=== PATIENT | female | born 1980 | race Caucasian/White ===

== ENCOUNTER 2024-05-05 13:11 | Outpatient (RCR) | payer OTHER, SELFPAY | END 2024-05-06 08:28 | disposition home or self-care (01) | LOC: HEMC 13:11 | PROVIDERS: PCP Family Medicine; Visit Provider Internal Medicine Hematology & Oncology | DX: D68.59 Other primary thrombophilia (principal); Z86.718 Personal history of other venous thrombosis and embolism; Z86.711 Personal history of pulmonary embolism; Z90.81 Acquired absence of spleen | CPT/HCPCS: G0463 ==

== ENCOUNTER 2024-09-17 12:53 | Outpatient (OUT) | payer OTHER, SELFPAY ==
[2024-09-17 13:25] LABS: Basophils Absolute Auto 0.1 10^3/uL (0.0-0.1); Basophils Percent Auto 0.8 % (0.2-2.0); Eosinophils Absolute Auto 0.6 10^3/uL (0.0-0.7); Eosinophils Percent Auto 5.8 % (0.9-7.0); Hematocrit 40.5 % (36.0-48.0); Hemoglobin 13.4 g/dL (12.0-16.0); Immature Granulocytes Abs Auto 0.03 10^3/uL (0.00-0.03); Immature Granulocytes Pct Auto 0.3 % (0.0-0.5); Lymphocytes Percent Auto 47.5 % (20.5-60.0); Mean Corpuscular HGB Conc 33.1 g/dL (29.9-35.2); Mean Corpuscular Hemoglobin 30.9 pg (26.7-34.0); Mean Corpuscular Volume 93.3 fL (81.0-99.0); Mean Platelet Volume 9.8 fL (9.5-13.5); Neutrophils Absolute Auto 3.9 10^3/uL (1.4-6.5); Neutrophils Percent Auto 36.6 % (43.0-75.0); Platelet Count 436 10^3/uL (150-450); Red Blood Count 4.34 10^6/uL (4.20-5.40); Red Cell Distribution Width 13.7 % (11.0-15.0); White Blood Count 10.6 10^3/uL (4.0-11.0)
[2024-09-17 14:11] LABS: Percent Iron Saturation 31.2 %
[2024-09-17 14:24] LABS: Alanine Aminotransferase 15 U/L (14-59); Albumin Globulin Ratio 1.1; Albumin Level 3.4 g/dL (3.4-5.0); Alkaline Phosphatase 64 U/L (46-116); Aspartate Amino Transferase 15 U/L (15-37); BUN Creatinine Ratio 14.4; Bilirubin Total 0.4 mg/dL (0.2-1.0); Calcium 8.3 mg/dL (8.5-10.1); Carbon Dioxide 28.7 mmol/L (21.0-32.0); Chloride 106 mmol/L (98-107); Estimated GFR (African America >60 (>=60 mL/min/1.73m^2); Estimated GFR (Non-African Ame >60 (>=60 mL/min/1.73m^2); Globulin 3.1 g/dL; Glucose 72 mg/dL (74-106); Potassium 3.7 mmol/L (3.5-5.1); Sodium 141 mmol/L (136-145); Total Protein 6.5 g/dL (6.4-8.2)
== END 2024-09-17 12:54 | disposition home or self-care (01) ==
PROVIDERS: PCP Family Medicine; Visit Provider Internal Medicine Hematology & Oncology
DX: D68.59 Other primary thrombophilia (principal); I82.409 Acute embolism and thrombosis of unspecified deep veins of unspecified lower extremity
CPT/HCPCS: 36415; 80053; 82728; 83540; 83550; 85025

== ENCOUNTER 2024-10-13 07:52 | Outpatient (RCR) | payer OTHER, SELFPAY | END 2024-10-14 08:34 | disposition home or self-care (01) | LOC: HEMC 07:52 | PROVIDERS: PCP Family Medicine; Visit Provider Internal Medicine Hematology & Oncology | DX: I82.409 Acute embolism and thrombosis of unspecified deep veins of unspecified lower extremity (principal); D68.59 Other primary thrombophilia; Z86.718 Personal history of other venous thrombosis and embolism; F17.210 Nicotine dependence, cigarettes, uncomplicated; Z79.01 Long term (current) use of anticoagulants | CPT/HCPCS: G0463 ==

== ENCOUNTER 2025-01-05 07:33 | Outpatient (RCR) | payer OTHER, SELFPAY ==
[2025-01-05 12:38] LABS: Hematocrit 44.5 % (36.0-48.0); Hemoglobin 14.8 g/dL (12.0-16.0); Immature Granulocytes Abs Auto 0.01 10^3/uL (0.00-0.03); Immature Granulocytes Pct Auto 0.1 % (0.0-0.5); Lymphocytes Absolute Auto 4.3 10^3/uL (1.2-3.8); Mean Corpuscular HGB Conc 33.3 g/dL (29.9-35.2); Mean Corpuscular Hemoglobin 31.4 pg (26.7-34.0); Mean Corpuscular Volume 94.5 fL (81.0-99.0); Platelet Count 371 10^3/uL (150-450); Red Blood Count 4.71 10^6/uL (4.20-5.40); White Blood Count 9.5 10^3/uL (4.0-11.0)
[2025-01-06 14:35] LABS: Alanine Aminotransferase 21 U/L (14-59); Albumin Globulin Ratio 1.0; Albumin Level 3.4 g/dL (3.4-5.0); Alkaline Phosphatase 60 U/L (46-116); Anion Gap 9.8; Aspartate Amino Transferase 14 U/L (15-37); Blood Urea Nitrogen 18.0 mg/dL (7.0-18.0); Calcium 8.7 mg/dL (8.5-10.1); Carbon Dioxide 29.3 mmol/L (21.0-32.0); Chloride 104 mmol/L (98-107); Estimated GFR (African America >60 (>=60 mL/min/1.73m^2); Estimated GFR (Non-African Ame >60 (>=60 mL/min/1.73m^2); Globulin 3.3 g/dL; Glucose 99 mg/dL (74-106); Potassium 4.1 mmol/L (3.5-5.1); Sodium 139 mmol/L (136-145); Thyroid Stimulating Hormone 1.217 uIU/mL (0.358-3.740); Total Protein 6.7 g/dL (6.4-8.2)
[2025-01-06 15:14] LABS: Iron 54.0 ug/dL (50.0-170.0); Percent Iron Saturation 21.9 %; Total Iron Binding Capacity 247.0 ug/dL (250.0-450.0)
[2025-01-06 15:29] LABS: Ferritin 53.0 ng/mL (8.0-252.0)
== END 2025-01-07 23:59 | disposition home or self-care (01) ==
LOC: HEMC 07:33
PROVIDERS: PCP Family Medicine; Visit Provider Internal Medicine Hematology & Oncology
DX: I82.409 Acute embolism and thrombosis of unspecified deep veins of unspecified lower extremity (principal); D68.59 Other primary thrombophilia; F17.210 Nicotine dependence, cigarettes, uncomplicated
CPT/HCPCS: 36415; 80053; 82728; 83540; 83550; 83615; 84439; 84443; 85025; G0463

== ENCOUNTER 2025-04-20 14:18 | Outpatient (OUT) | payer OTHER, SELFPAY ==
--- OUTSIDE RECORDS SUMMARY | 2023-11-18 10:30 | XMS_ITS ---
Author Organization The [facility] in [place] Address [address] [place] [address] Care Team Providers Care Emergency Dispatch Operator Name Role Phone None, Unknown or Primary Care Provider Unavailab Ruben Ramsay Unavailable [phone] REASON FOR VISIT MD Encounters Encounter Location Date Provider Diagnosis [address] [place] [address] 11/18/2023 Ruben Michele Plan Of Treatment Next Appt Details Provider Name:Zulema Gilbert , 04/20/2025 03:00:00 PM, [address] [place], [address], Progress Notes * Nelda العراقي EDOB:06/1979 (45 yo F)Acc No.[id number]:11/18/2023 UNLOCKED PROGRESS NOTE Progress Notes Patient: Joanie TORRESAARON Nelda Cortes :?Ruben Michele MDDOB:1980???Age:43 Y ???Sex:FemaleDate:4Phone:[phone]:[address], [id number]:Unknown or None Subjective: * Chief Complaints: * 1 . MD. * Medical History: Objective: * Vitals: Assessment: Plan: * Treatment: * * Electronic signature of Ruben Michele MD, [id number] on 04/20/2025 at 02:24 PM ESTSign off status: PendingVisit Status:?CANC (Cancelled) * Provider: Harjinder Michele MD Date: 0 11/18/2023 Generated for Printing/Faxing/eTransmitting on:?04/20/2025 02:24 PM EST
--- OUTSIDE RECORDS SUMMARY | 2024-01-21 10:00 | XMS_ITS ---
Author Organization The [facility] in [place] Address [address] [place] [address] Care Team Providers Care Service Girl Name Role Phone None, Unknown or Primary Care Provider Unavailab Ruben Ramsay Unavailable [phone] REASON FOR VISIT MD Encounters Encounter Location Date Provider Diagnosis [address] [place] [address] 01/21/2024 Ruben Michele Plan Of Treatment Next Appt Details Provider Name:Zulema Gilbert , 04/20/2025 03:00:00 PM, [address] [place], [address], Progress Notes * Nelda العراقي EDOB:06/1979 (45 yo F)Acc No.[id number]:01/21/2024 UNLOCKED PROGRESS NOTE Progress Notes Patient: Joanie TORRESAARON Nelda Cortes :?Ruben Michele MDDOB:1980???Age:43 Y ???Sex:FemaleDate:4Phone:[phone]:[address], [id number]:Unknown or None Subjective: * Chief Complaints: * 1 . MD. * Medical History: Objective: * Vitals: Assessment: Plan: * Treatment: * * Electronic signature of Ruben Michele MD, [id number] on 04/20/2025 at 02:24 PM ESTSign off status: PendingVisit Status:?CANC (Cancelled) * Provider: Harjinder Michele MD Date: 0 01/21/2024 Generated for Printing/Faxing/eTransmitting on:?04/20/2025 02:24 PM EST
--- OUTSIDE RECORDS SUMMARY | 2024-02-04 04:10 | XMS_ITS ---
Author Organization The [facility] in [place] Address [address] [place] [address] Care Team Providers Care Drop Crew Laborer Name Role Phone None, Unknown or Primary Care Provider Unavailab le Provider, Lab Unavailable [phone] REASON FOR VISIT gf/ct Encounters Encounter Location Date Provider Diagnosis [facility] [place] [address] [address] 02/04/2024 Lab Provider Plan Of Treatment Next Appt Details Provider Name:Zulema Reeveswla , 04/20/2025 03:00:00 PM, [address] [place], [address], Progress Notes * Nelda العراقي EDOB:06/1979 (45 yo F)Acc No.[id number]:02/04/2024 UNLOCKED PROGRESS NOTE Progress Note Patient: Joanie AVALOS Nelda Sebastian :?Lab ProviderDOB:1980???Age:43 Y???Sex: FemaleDate:4Phone:[phone]:[address] [id number]:Unknown or NoneCheck In:09:07 AM ESTCheck Out:09:47 AM EST Subjective: * Chief Complaints: * 1 . Gf/ct. * Medical History: Objective: * Vitals: Assessment: Plan: * Treatment: * * Electronic signature of Lab Provider on 04/20/2025 at 02:24 PM ESTSign off status: PendingVisit Status:?CHK (Check Out) * Provider: Panchito catalan Provider Date: 0 02/04/2024 Generated for Printing/Faxing/eTransmitting on:?04/20/2025 02:24 PM EST
--- OUTSIDE RECORDS SUMMARY | 2024-02-04 08:15 | XMS_ITS ---
Author Organization The [facility] in [place] Address [address] [place] [address] Care Team Providers Care Dial Painter Name Role Phone None, Unknown or Primary Care Provider Unavailab Ruben Ramsay Unavailable [phone] REASON FOR VISIT MD Encounters Encounter Location Date Provider Diagnosis [address] [place] [address] 02/04/2024 Ruben Michele Plan Of Treatment Next Appt Details Provider Name:Zulema Gilbert , 04/20/2025 03:00:00 PM, [address] [place], [address], Progress Notes * Nelda العراقي EDOB:06/1979 (45 yo F)Acc No.[id number]:02/04/2024 UNLOCKED PROGRESS NOTE Progress Notes Patient: Joanie TORRESAARON Nelda Cortes :?Ruben Michele MDDOB:1980???Age:43 Y ???Sex:FemaleDate:4Phone:[phone]:[address], [id number]:Unknown or None Subjective: * Chief Complaints: * 1 . MD. * Medical History: Objective: * Vitals: Assessment: Plan: * Treatment: * * Electronic signature of Ruben Michele MD, [id number] on 04/20/2025 at 02:23 PM ESTSign off status: PendingVisit Status:?CONFPHONE (Voice) * Provider: Harjinder Michele MD Date: 0 02/04/2024 Generated for Printing/Faxing/eTransmitting on:?04/20/2025 02:23 PM EST
--- OUTSIDE RECORDS SUMMARY | 2024-05-05 08:00 | XMS_ITS ---
Author Organization The [facility] in [place] Address [address] [place] [address] Care Team Providers Care Meter Tester Polyphase Name Role Phone None, Unknown or Primary Care Provider Unavailab Zulema Gagnon Unavailable [phone] REASON FOR VISIT MD Encounters Encounter Location Date Provider Diagnosis [facility] Oncology [address] [place] [address] 05/05/2024 Zulema Gilbert Plan Of Treatment Next Appt Details Provider Name:Zulema Gilbert , 04/20/2025 03:00:00 PM, [address] [place] [address], [address], Progress Notes * Nelda العراقي EDOB:06/1979 (45 yo F)Acc No.[id number]:05/05/2024 UNLOCKED PROGRESS NOTE Progress Notes Patient: Joanie Nelda AVALOS :?Zulema Gilbert M.D.:1980???Age:44 Y ???Sex:FemaleDate:4Phone:[phone]:[address] [place] [address] ROU[address] [facility] [id number]:Unknown or None Subjective: * Chief Complaints: * 1 . MD. * Medical History: Objective: * Vitals: Assessment: Plan: * Treatment: * * Electronic signature of Zulema Gilbert MD, [id number] on 04/20/2025 at 02:24 PM ESTSign off status: PendingVisit Status:?CONFPHONE (Voice) * Provider: Kate Gilbert M.D. Date: 07/05/2023 Generated for Printing/Faxing/eTransmitting on:?04/20/2025 02:24 PM EST
--- OUTSIDE RECORDS SUMMARY | 2024-09-17 08:00 | XMS_ITS ---
Author Organization The [facility] in [place] Address [address] [place] [address] Care Team Providers Care Health Promoter Name Role Phone None, Unknown or Primary Care Provider Unavailab Zulema Gagnon Unavailable [phone] REASON FOR VISIT MD Encounters Encounter Location Date Provider Diagnosis [facility] On[facility] [address] [place] [address] 09/17/2024 Zulema Gilbert Plan Of Treatment Next Appt Details Provider Name:Zulema Gilbert , 04/20/2025 03:00:00 PM, [address] [place] [address], [address], Progress Notes * Nelda العراقي EDOB:06/1979 (45 yo F)Acc No.[id number]:09/17/2024 UNLOCKED PROGRESS NOTE Progress Notes Patient: Joanie Nelda AVALOS :?Zulema Gilbert M.D.:1980???Age:44 Y ???Sex:FemaleDate:09/17/2024Phone:[phone]:[address] [facility] [id number]:Unknown or None Subjective: * Chief Complaints: * 1 . MD. * Medical History: Objective: * Vitals: Assessment: Plan: * Treatment: * * Electronic signature of Zulema Gilbert MD, [id number] on 04/20/2025 at 02:23 PM ESTSign off status: PendingVisit Status:?CANC (Cancelled) * Provider: Kate Gilbert M.D. Date: 0 09/17/2024 Generated for Printing/Faxing/eTransmitting on:?04/20/2025 02:23 PM EST
--- OUTSIDE RECORDS SUMMARY | 2024-10-13 10:00 | XMS_ITS ---
Author Organization The [facility] in [place] Address [address] [place] [address] Care Team Providers Care Learning Specialist Name Role Phone None, Unknown or Primary Care Provider Unavailab Zulema Gagnon Unavailable [phone] REASON FOR VISIT MD Encounters Encounter Location Date Provider Diagnosis [facility] Oncology [address] [place] [address] 10/13/2024 Zulema Gilbert Plan Of Treatment Next Appt Details Provider Name:Zulema Gilbert , 04/20/2025 03:00:00 PM, [address] [place] [address], [phone], Progress Notes * Nelda العراقي EDOB:06/1979 (45 yo F)Acc No.[id number]:10/13/2024 UNLOCKED PROGRESS NOTE Progress Notes Patient: Joanie Nelda AVALOS :?Zulema Gilbert M.D.:1980???Age:44 Y ???Sex:FemaleDate:10/13/2024Phone:[phone]:[address] [facility] [id number]:Unknown or None Subjective: * Chief Complaints: * 1 . MD. * Medical History: Objective: * Vitals: Assessment: Plan: * Treatment: * * Electronic signature of Zulema Gilbert MD, [id number] on 04/20/2025 at 02:23 PM ESTSign off status: PendingVisit Status:?CONFPHONE (Voice) * Provider: Kate Gilbert M.D. Date: 0 10/13/2024 Generated for Printing/Faxing/eTransmitting on:?04/20/2025 02:23 PM EST
--- OUTSIDE RECORDS SUMMARY | 2025-01-05 05:45 | XMS_ITS ---
Author Organization The [facility] in [place] Address [address] [place] [address] Care Team Providers Care Bull Chain Operator Name Role Phone None, Unknown or Primary Care Provider Unavailab Zulema Gagnon Unavailable [phone] REASON FOR VISIT MD Encounters Encounter Location Date Provider Diagnosis [facility] [address] [place] [address] 01/05/2025 Zulema Gilbert Plan Of Treatment Next Appt Details Provider Name:Zulema Gilbert , 04/20/2025 03:00:00 PM, [address] [place] [address], [address], Progress Notes * Nelda العراقي EDOB:06/1979 (45 yo F)Acc No.[id number]:01/05/2025 UNLOCKED PROGRESS NOTE Progress Notes Patient: Joanie Nelda AVALOS :?Zulema Gilbert M.D.:1980???Age:44 Y ???Sex:FemaleDate:01/05/2025Phone:[phone]:[address] [facility] [id number]:Unknown or None Subjective: * Chief Complaints: * 1 . MD. * Medical History: Objective: * Vitals: Assessment: Plan: * Treatment: * * Electronic signature of Zulema Gilbert MD, [id number] on 04/20/2025 at 02:24 PM ESTSign off status: PendingVisit Status:?CONFPHONE (Voice) * Provider: Kate Gilbert M.D. Date: 0 01/05/2025 Generated for Printing/Faxing/eTransmitting on:?04/20/2025 02:24 PM EST
--- OUTSIDE RECORDS SUMMARY | 2025-02-02 09:45 | XMS_ITS ---
Author Organization The [facility] in [place] Address [address] [place] [address] Care Team Providers Care Ordnance Truck Installation Mechanic Name Role Phone None, Unknown or Primary Care Provider Unavailab Zulema Gagnon Unavailable [phone] REASON FOR VISIT MD TELEHEALTH Encounters Encounter Location Date Provider Diagnosis The [facility] Oncology [address] [place] [address] 02/02/2025 Zulema Gilbert Plan Of Treatment Next Appt Details Provider Name:Zulema Gilbert , 04/20/2025 03:00:00 PM, [address] [place], [address], Progress Notes * Nelda العراقي EDOB:06/1979 (45 yo F)Acc No.[id number]:02/02/2025 UNLOCKED PROGRESS NOTE Progress Notes Patient: Joanie Nelda AVALOS :?Zulema Gilbert M.D.:1980???Age:44 Y ???Sex:FemaleDate:02/02/2025Phone:[phone]:[address] [facility] [id number]:Unknown or None Subjective: * Chief Complaints: * 1 . TELEHEALTH. * Medical History: Objective: * Vitals: Assessment: Plan: * Treatment: * * Electronic signature of Zulema Gilbert MD, [id number] on 04/20/2025 at 02:23 PM ESTSign off status: PendingVisit Status:?CANC (Cancelled) * Provider: Kate Gilbert M.D. Date: 0 02/02/2025 Generated for Printing/Faxing/eTransmitting on:?04/20/2025 02:23 PM EST
--- OUTSIDE RECORDS SUMMARY | 2025-04-20 14:23 | XMS_ITS | Clinical Summary ---
Author Organization [employer] Address [id number] [address] [place] [address] Care Team Providers Care Food Sampler Name Role Phone Nahomy Faria Panchito RAMOS-FELLMONGERY WORKER Primary Care Provider [phone] Allergies Active AllergyReactionsCriticalityNoted DateCommentsAcetaminophen-CodeineItching ,SwnbTzn4211/09/2013 sob, light headed, Sertraline Hcl11/09/2013 Panic attack Medications MedicationSigDispense QuantityRefillsLast FilledStart DateEnd DateStatus gabapentin (NEURONTIN) 600 mg tablet Take by mouth.04/29/2017Active rivaroxaban (XARELTO) 20 mg tablet tablet Take 20 mg by mouth daily.Active ketorolac (ACULAR) 0.5 % ophthalmic solution Administer 1 drop to both eyes every 6 (six) hours. 5 mL 5Active fluorometholone (FML LIQUIFILM) 0.1 % ophthalmic suspension Indications:Allergic conjunctivitis of both eyes,Superficial punctate keratitis of both eyesAdminister 1 drop to both eyes in the morning and 1 drop at noon and 1 drop in the evening and 1 drop before bedtime. 10 mL 5Active carboxymethylcellulose (REFRESH TEARS) 1 % ophthalmic solution Indications:Keratoconjunctivitis sicca due to decreased tear production, bilateralAdminister 1 drop to both eyes in the morning and 1 drop at noon and 1 drop in the evening and 1 drop before bedtime. 15 mL 5Active olopatadine (PATADAY ONCE DAILY RELIEF) 0.7 % drops Indications:Allergic conjunctivitis of both eyesAdminister 1 drop to both eyes in the morning. 5 mL 5Active cycloSPORINE (RESTASIS) 0.05 % ophthalmic emulsion Indications:Keratoconjunctivitis sicca due to decreased tear production, bilateral,Superficial punctate keratitis of both eyesAdminister 1 drop to both eyes in the morning and 1 drop before bedtime. 180 each 3105Active REFRESH OPTIVE 1-0.9 % drops,gel Indications:Keratoconjunctivitis sicca due to decreased tear production, bilateralAdminister 1 drop to both eyes nightly. 10 mL 1115Active Active Problems ProblemNoted DateDiagnosed DateKeratoconjunctivitis sicca due to decreased tear production, eehvnbtoi26/25/2025llergic conjunctivitis of both eyes03/04/2025 Superficial punctate keratitis of both eyes03/04/2025 Encounters DateTypeDepartmentCare KkwkMsafhotmxvd37/25/2025 3:45 PM EDTOffice Visit [facility] [address] [place] [phone] Jake Jessica, OD Keratoconjunctivitis sicca due to decreased tear production, bilateral (Primary Dx); Superficial punctate keratitis of both eyes; Allergic conjunctivitis of both eyes03/04/20252058Ogedjk10/19/2025Refill [facility] [address] [place] [phone] Betzy Cerda, COA Allergic conjunctivitis of both eyes01/25/2025 2:15 PM EDTOffice Visit [facility] [address] [place] [phone] Jake Jessica, OD Allergic conjunctivitis of both eyes (Primary Dx); Superficial punctate keratitis of both eyes; Keratoconjunctivitis sicca due to decreased tear production, nxnxyckjb21/18/2025 Refill [facility] [address] [place] [phone] Jake Jessica, OD Allergic conjunctivitis of both eyes01/24/2025Travelfrom Last 3 Months Immunizations ImmunizationAdministration DatesNext EbbBpua0701/10/2023 Social History Tobacco UseTypesPacks/DayYears UsedDateSmoking Tobacco: Every PicYttqwsmova451 Smokeless Tobacco: Never Tobacco Cessation:Ready to Q uit: Not Asked; Counseling Given: Not Answered Alcohol UseStandard Drinks/WeekCommentsNo0 (1 standard drink = 0.6 oz pure alcohol)ChildcareAnswerDate BlblsahkJuyfeqghuYuhbpik34/11/2019EmploymentAnswer Date YgaxydulRntunppwrrFsxtbfz60/11/2019Hunger ScreeningAnswerDate Recorded Within the past 12 months we worried whether our food would run out before we got money to buy more.Never True10/31/2024Within the past 12 months the food we bought just didn't last and we didn't have money to get more.Never True 10/31/2024Purpose - LifeAnswerDate RecordedPurpose and direction in lifeUnknown 1CommentsNoSex and Gender InformationValueDate RecordedSex Assigned at BirthNot on fileLegal SgwGtvgvl49/04/2015 7:45 PM EDTGender Identity Not on fileSexual OrientationNot on file Last Filed Vital Signs Vital SignReadingTime TakenCommentsBlood Axzroddk895/40010/31/2024 6:15 PM EDT Ppjdo27437/24/2025 6:15 PM MIPNfmfugtuxzs60.4 ??C (97.6 ??F)10/31/2024 6:15 PM EDTRespiratory Ixtm627310/31/2024 6:15 PM EDTOxygen Hgrlnbmzym099%10/31/2024 6:15 PM EDTInhaled Oxygen Concentration--Zufojw54.6 kg (129 lb 1.6 oz)10/31/2024 6:15 PM ACRRtijum605.9 cm (5' 1 )10/31/2024 6:15 PM EDTBody Mass Index24.39010/31/2024 6:15 PM EDT Plan of Treatment DateTypeDepartmentCare Team (Latest Contact Info)Lxtqwcubmvm11/18/2025 3:15 PM ESTOffice Visit [facility] [address] [place] [phone] Jaskaran Jake W, OD [address] [facility] [address] [place] [address] Health MaintenanceDue DateLast DoneCommentsTobacco Fjboekpraf1982 Depression Zwpctdnaz51/01/1994COVID-19 Vaccine ( - 2024- season)2025 06/26/2021Influenza Qvptesa71/, 06/26/2021, 07/31/2019, Additional history existsPap Smear/, 04/27/2022dult BMI Vozrpzfdt07/24/336129/Tobacco Pfkbcvrgo59/DTaP,Tdap and Td Vaccines (2 - Td or Tdap) Medical Devices Not on file [place] [address] Care Teams Team MemberRelationshipSpecialtyStart DateEnd Nahomy Faria, SVP [employer]-FELLMONGERY WORKER [address] [place] [address] PCP - GeneralNurse Practitioner10/31/24
--- OUTSIDE RECORDS SUMMARY | 2025-04-20 14:23 | XMS_ITS | CCD ---
Author Organization [facility] Care Team Providers Care Derrick Operator Name Role Phone Unavailable Primary Care Provider Unavailabl e RAFA, JUN Admitting Unavailable RAFA, JUN Attending Unavailable RAFA, JUN Consulting Unavailable RAFA, JUN Admitting Unavailable RAFA, JUN Attending Unavailable RAFA, JUN Consulting Unavailable RAFA, JUN S Primary Care Unavailable SZYCH, DAVID Referring Unavailable RAFA, JUN S Primary Care Unavailable SZYCH, DAVID Referring Unavailable SZYCH, DAVID Referring Unavailable RAFA, JUN S Primary Care Unavailable NONE, XXXX Primary Care Physician Unavailab DO Sarah Moon Attending Unavailable JESENIA GARCIA Attending Unavailable QUIQUENAHOMY ZALDIVAR Primary Care Unavailable Quique MATERIAL CONTROL SUPERVISORNahomy RIGGS Primary Care Provider JAKE JESSICA Attending Unavailable NAHOMY LEI Referring Unavailable QUIQUE NAHOMY L Primary Care Unavailable JAKE JESSICA Attending Unavailable QUIQUE NAHOMY L Primary Care Unavailable Allergies Allergy ClassificationReported Allergen(s)Allergy TypeDate of OnsetReaction(s) Facility (7 sources)Acetaminophen / Codeine; Translations: [ACETAMINOPHEN-CODEINE]Drug [place]wwzg[place] (7 sources)Sertraline; Translations: [SERTRALINE HCL]Drug Pfigfum97-89-0083[facility] [place], [place] (1 source)CodeineDrug Uozerqv69-58-7273[facility]Ohio[facility] (2 sources)Acetaminophen / Codeine; Translations: [acetaminophen-codeine]Drug AllergyHiWestern [facility] Medications Current Medications MedicationDrug Class(es)DatesSig (Normalized)Sig (Original) carboxymethylcellulose 0.01 mg/mg ophthalmic gel (4 sources)Start: 44-12-8362szxfeddynxftwxmvkbuwrj (REFRESH TEARS) 1 % ophthalmic solution Indications: Keratoconjunctivitis sicca due to decreased tear production, bilateral Administer 1 drop to both eyes in the morning and 1 d rop at noon and 1 drop in the evening and 1 drop before bedtime. 15 mL 3 01/25/2025 Activecarboxymethylcellulose sodium 0.01 mg/mg / glycerin 0.009 mg/mg ophthalmic gel (1 source)Non-Standardized Chemical AllergenStart: 11-63-4199SLPGQLJ OPTIVE 1- 0.9 % drops,gel Indications: Keratoconjunctivitis sicca due to decreased tear production, bilateral Administer 1 drop to both eyes nightly. 10 mL 11 03/10/2025 ActivecycloSPORINE 0.5 mg/ml ophthalmic suspension (1 source)Calcineurin Inhibitor ImmunosuppressantStart: 25-50-0626yfbh 1 drop(s) into the eye(s) in the morningcycloSPORINE (RESTASIS) 0.05 % ophthalmic emulsion Indications: Keratoconjunctivitis sicca due to decreased tear production, bilateral , Superficial punctate keratitis of both eyes Administer 1 drop to both eyes in the morning and 1 drop before bedtime. 180 each 3 03/10/2025 Activeerythromycin 0.005 mg/mg ophthalmic ointment (1 source)Macrolide, Macrolide AntimicrobialStart: 02-27-2024 End: 84-75-0088tramnduyllzf Opth 0.5% Oint 0.5 in, OPTH, QID for 7 day(s), 3.5 gm, Refill(s) 0 Start Date: 02/27/24Stop Date: 03/05/24 Status: Ordered fluorometholone 1 mg/ml ophthalmic suspension (4 sources)CorticosteroidStart: 34-88-2543wkgayqadhbruucc (FML LIQUIFILM) 0.1 % ophthalmic suspension Indications: Allergic conjunctivitis ofboth eyes , Superficial punctate keratitis of both eyes Administer 1 drop to both eyes in the morning and 1 drop at noon and 1 drop in the evening and 1 drop before bedtime. 10 mL 01/25/2025 Activegabapentin 600 mg oral tablet (5 sources)Anti-epileptic AgentStart: 20-71-3002jndpdoiodc (NEURONTIN) 600 mg tablet Take by mouth. 04/29/2017 Activeketorolac tromethamine 5 mg/ml ophthalmic solution (4 sources)Nonsteroidal Anti-inflammatory Drug, Cyclooxygenase InhibitorStart: 65-78-4567whjb 1 drop(s) into the eye(s) every six hoursketorolac (ACULAR) 0.5 % ophthalmic solution Administer 1 drop to both eyes every 6 (six) hours. 5 mL 10/31/2024 Active1 ml medroxyPROGESTERone acetate 150 mg/ml injection (1 source)ProgestinStart: 47-55-3848vmyqofsJJYTLWBGYafl (DEPO-PROVERA) 150 MG/ML injection Inject 1 mL into the muscle every 3 months 1mL 3 10/07/2018 Active olopatadine (PATADAY ONCE DAILY RELIEF) 0.7 % drops (4 sources)Start: 36-70-2170yaejwnqzfbt (PATADAY ONCE DAILY RELIEF) 0.7 % drops Indications: Allergic conjunctivitis of both eyes Administer 1 drop to both eyes in the morning. 5 mL 4 01/26/2025 ActiveStart: 01-25-2025 End: 27-57-2828dexbxxbyank (PATADAY ONCE DAILY RELIEF) 0.7 % drops Indications: Allergic conjunctivitis of both eyes Instill 1 drop to eye in the morning. 5 mL 4 01/25/2025 01/26/2025 DiscontinuedStart: 05-30-8566khngvctlyqx (PATADAY ONCE DAILY RELIEF) 0.7 % drops Indications: Allergic conjunctivitis of both eyes Instill 1 drop to eye in the morning. 5 mL 4 01/25/2025 Activerivaroxaban 20 mg oral tablet (5 sources)Factor Xa InhibitorStart: 66-13-1335bthh 1 tablet by mouth once daily rivaroxaban (XARELTO) 20 MG TABS tablet Indications: Acute deep vein thrombosis (DVT) of lower extremity, unspecified laterality, unspecified vein (HCC) Take 1 tablet by mouth daily 30 tablet 11 01/08/2019 Active Completed/Discontinued Medications MedicationDrug Class(es)DatesSig (Normalized)Sig (Original)PATADAY ONCE DAILY RELIEF 0.7 % drops (2 sources)Start: 01-26-2025 End: 32-25-7572MDKZOPX ONCE DAILY RELIEF 0.7 % drops Indications: Allergic conjunctivitis of both eyes ADMINISTER 1 DROP INTO EYE IN THE MORNING 5 mL 4 01/26/2025 01/26/2025 Discontinued (Reorder) Problems Active Problems Problem ClassificationProblemDateDocumented DateEpisodic/ChronicInflammation; infection of eye (except that caused by tuberculosis or sexually transmitteddisease) (9 sources)Bilateral punctate keratitis of eyes; Translations: [Punctate keratitis, bilateral]Onset: 781627-85-0720VstmiazSjmltrtbqrsg; infection of eye (except that caused by tuberculosis or sexually transmitteddisease) (8 sources)Conjunctivitis; Translations: [Unspecified conjunctivitis]Onset: 25-84-2520IvtpvyhwAglnqbkpy disorders (3 sources)Menorrhagia; Translations: [Irregular periods]Onset: 10-29-2013 41-19-4205TjlrbusLmyii eye disorders (1 source)Dry eyeOnset: 30-91-5494PbskdhcuIdbgoppa codes; unclassified (1 source)Tobacco user; Translations: [Tobacco abuse]Onset: ChronicSubstance-related disorders (1 source)Tuuscv84-12-0705IvbvhvvNmmyqcm on above:Added secondary to documentation in Social History.Superficial injury; contusion (1 source)Injury of conjunctiva and corneal abrasion without foreign body, right eye, initial encounter; Translations: [Injury of conjunctiva and corneal abrasion without foreign body, right eye, initial encounter]Onset: 10-31-2024 EpisodicSystemic lupus erythematosus and connective tissue disorders (1 source)Keratoconjunctivitis oxhtn40-23-9635BohxeeuNubntbd disorders (4 sources)Hypothyroidism, unspecified; Translations: [HYPOTHYROIDISM UNSPECIFIED]Onset: 61-25-4226FxrdngrCwqjgwlhhiya (1 source)Eye ProblemOnset: 01-64-1952Ylqfuudnupow (1 source)Eye IrritationOnset: 89-82-4850Pthndmrptosc (1 source)Allergic conjunctivitis of both eyesOnset: 03-04-2025 Past or Other Problems Problem ClassificationProblemDateDocumented DateEpisodic/ChronicCancer of cervix (1 source)High grade squamous intraepithelial lesion on cervical Papanicolaou smear; Translations: [HGSIL on Pap smear of cervix]Onset: EpisodicDeficiency and other anemia (1 source)Anemia, unspecified; Translations: [ANEMIA UNSPECIFIED]Onset: 42-22-6549DtuxiavcDawfvzgs mellitus without complication (1 source)Other abnormal glucose; Translations: [OTHER ABNORMAL GLUCOSE]Onset: 04-59-4457DumslhqxValqvrgsn; thrombophlebitis and thromboembolism (1 source)Deep venous thrombosis; Translations: [DVT (deep venous thrombosis)] Onset: 043998-83-0989EuklwctoBblilyjyf heart disease (1 source)Pulmonary embolism; Translations: [Pulmonary embolism]Onset: 981948-02-0264Tzauqnwz Results Test NameValueInterpretationReference RangeFacilityED Clinical Summaryon [id number] Clinical SummaryED Clinical Summary [place] [id number] ED Clinical Summary Person Information Name: LAURA العراقي/[facility] Age: 43 Years : 1980 Sex: Female Language: Divehi PCP: NONE, XXXX Marital Status: Single Visit Id: Visit Reason: Eye pain; RT EYE PAIN Speciality: Acuity: 4 Enc Type: Emergency Med Service: Emergency Arrival: 02/27/2024 01:03:42 Discharge: 02/27/2024 02:18:47 LOS: 000 01:15 Checkin: 02/27/2024 01:03:42 Checkout: 02/27/2024 02:18:47 Dispo Type: Home (Routine DC) EVENTS: Event Name Event Status Request Date/Time Start Date/Time Complete Date/Time Arrive Complete 02/27/2024 01:03:42 02/27/2024 01:03:42 02/27/2024 01:03:42 Document Home Meds Request 02/27/2024 01:03:42 Triage Complete 02/27/2024 01:03:42 02/27/2024 01:32:12 02/27/2024 01:32:12 Registration Complete 02/27/2024 01:10:59 02/27/2024 01:10:59 02/27/2024 01:10:59 Reg Complete Request 02/27/2024 01:10:59 Reg Bed Request Complete 02/27/2024 01:10:59 02/27/2024 01:10:59 02/27/2024 01:10:59 Bed Assign Complete 02/27/2024 01:27:29 02/27/2024 01:27:29 02/27/2024 01:27:29 Dr Exam Complete 02/27/2024 01:27:29 02/27/2024 01:30:27 02/27/2024 01:30:27 RN Exam Complete 02/27/2024 01:27:29 02/27/2024 01:33:36 02/27/2024 01:33:36 Registration Request 02/27/2024 01:30:27 Meds Admin Complete 02/27/2024 01:48:15 02/27/2024 01:59:17 Meds Admin Complete 02/27/2024 02:10:27 02/27/2024 02:17:49 Discharge Complete 02/27/2024 02:11:50 02/27/2024 02:19:04 02/27/2024 02:19:04 Transfer Complete 02/27/2024 02:19:04 02/27/2024 02:19:04 02/27/2024 02:19:04 ADDRESS: [facility] [id number] PHYS DOC NOTES: MEDICAL INFORMATION: Prescriptions Given: New Medications Printed Prescriptions erythromycin ophthalmic (erythromycin Opth 0.5% Oint) 0.5 Inch Ophthalmic 4 times a day for 7 Days.Refills: 0. PATIENT EDUCATION INFORMATION: Instructions: Bacterial Conjunctivitis, Adult, Wbcc-vw-Ascz Follow up: With: Address: When: Lex Pepper [facility] [address] [place], [facility] [address] [place] [address] Business (1) In 3 days 03/01/2024 Comments: Use antibiotic ointment 4 times a day for the next 7 days and to complete the course. Please follow-up with the eye doctor for further evaluation management. Please return to the ED for any new or worsening symptoms. With: Address: When: [facility] , [place] In 3 days DIAGNOSIS: ConjunctivitisNormalFisher Michael Medical CenterED Note-Physicianon [id number] Note-PhysicianED Note-Physician Basic Information Time Seen: Sarah Ortez DO 02/27/2024 01:30 Chief Complaint Pt arrives to ed with c/o right eye pain that has been ongoing since May. Pt states she has been taking over the counter eye drops for some time with no relief. History of Present Illness Patient is a 43-year-old female with no past medical history presenting to the ED for evaluation ofright eye pain and discharge. Patient states she is been having these symptoms since May has not seen anybody for this. Patient states they will come and go however they have become more frequent. Patient denies any fevers, chills denies wearing any contacts. Denies any other complaints. Has not had any injury or trauma to the eye. Review of Systems A 10 point review of systems is negative except as noted above. Medical and Surgical History: Reviewed and noted Social history: Lives at home Tobacco: Denies Physical Exam Vitals & Measurements T: 36.5 ?C(Oral) HR: 71(Peripheral) RR: 16 BP: 130/82 SpO2: 97% HT: 154.94 cm WT: 59.6 kg BMI: 24.83 General: Well developed, non toxic appearing, no acute distress HEENT: Head atraumatic, Mucosa moist, hearing grossly normal, conjunctival injection noted to the right eye with purulent crusting noted to the eyelashes circular motions are intact, no fluorescein uptake on fluorescein stain Neck: No JVD, tracheal deviation Cardiac: Regular rate, rhythm, no murmurs, or gallops, 2+ radial pulses Respiratory: Lungs clear to auscultation B/L, normal respiratory effort Extremities: No edema noted in the LE B/L, no tenderness to palpation Neurologic: Alert and oriented, speech clear Skin: No rashes or lesions Psych: Appropriate mood and behavior Medical Decision Making MEDICAL DECISION MAKING Number and Complexity of Problems Differential Diagnosis: [] [facility] Data External documents reviewed: [] My EKG interpretation: [] My CT interpretation: [] My X-ray interpretation: [] My Ultrasound interpretation: [] Decision rules/scores evaluated: [] Discussed with: [] Treatment and Disposition ED Course: Patient is a 43-year-old female presenting to the ED for evaluation of right eye pain since May. Patient nontoxic and on arrival, no acute distress. On examination patient does have an conjunctival injection purulent drainage of the right eye. Consistent with conjunctivitis. Fluorescein stain is performed with no uptake on examination. Patient started on erythromycin ointment is given referral to ophthalmology. She is to return to the ED for any new or worsening symptoms she is to follow-up with her primary care doctor next 2 to 3 days. Shared decision making: [] Code status: [] Assessment/Plan Conjunctivitis (H10.9: Unspecified conjunctivitis) Orders: erythromycin ophthalmic, 0.5 in, OPTH, QID for 7 day(s), 3.5 gm, Refill(s) 0 erythromycin ophthalmic, 1 sushila, Ointment, OPTH, Once, Stop date 02/27/24 2:10:00 EDT, STAT, Start date 02/27/24 2:10:00 EDT fluorescein ophthalmic, 1 mg, 1 EA, Test, OPTH, Once, Stop date 02/27/24 1:47:00 EDT, STAT, Start date 02/27/24 1:47:00 EDT tetracaine ophthalmic, 2 drop(s), Soln-Opth, OPTH, Once, Stop date 02/27/24 1:47:00 EDT, STAT, Start date 02/27/24 1:47:00 EDT Medications Administered Given erythromycin Opth 0.5% Oint, 1 sushila, OPTH fluorescein ophthalmic 1 mg test, 1 mg, OPTH tetracaine Opth 0.5% Yodit, 2 drop(s), OPTH Disposition Plan Discharge Prescription List Prescriptions erythromycin Opth 0.5% Oint, 0.5 in, OPTH, QID Follow-up With When Contact Information Lex Pepper In 3 days 03/01/2024 EDT [facility] [address] [place] [address], [facility] [address] [place] [phone]- Business (1) Additional Instructions: Use antibiotic ointment 4 times a day for the next 7 days and to complete the course. Please follow-up with the eye doctor for further evaluation management. [facility] return [facility] for any new or worsening symptoms. XXXX NONE In 3 days [place] Additional Instructions: Patient Education Bacterial Conjunctivitis, Adult, Rftr-ew-Snga Problem List/Past Medical History Ongoing Smoker Historical No qualifying data Medications Inpatient No active inpatient medications Home erythromycin Opth 0.5% Oint, 0.5 in, OPTH, QID Allergies Tylenol with Codeine #3 (Hives) Social History Alcohol Substance Abuse Tobacco 5-9 cigarettes (between 1/4 to 1/2 pack)/day in last 30 days Tobacco Use:., 02/27/2024 Lab Results No qualifying data available. Diagnostic Results No qualifying data available.[facility]itus Medical CenterComment on above: Result Comment: Electronically Signed By: Sarah Ortez DO\.br\Date and Time Signed: 02/27/24 02:54 EDTED Patient Summaryon [id number] Patient SummaryED Patient Summary [address] [address] Patient Discharge Instructions Person Information Name: LAURA العراقي Age: 43 Years Arrival Date: 02/27/2024 01:03:42 Discharge Diagnosis: Conjunctivitis Primary Care Physician: NONE, XXXX Provider Information Primary Provider: Sarah Ortez DO Advanced Entry Level Account Executive:None The exam and treatment you received in the Emergency Department were for an urgent problem and are not intended as complete care. It is important that you follow up with a doctor, nurse practitioner,or physician?s [employer] assistant manager for ongoing care. If your symptoms become worse or you do not improve as expected and you are unable to reach your usual health care provider, you should return to the Emergency Department. We are available 24 hours a day. MARCO ANTONIOJUAN JOSEALBERTOLAURA [place] has been given the following list of patient education materials, prescriptions and follow-up instructions: Follow-up Instructions: With: Address: When: Lex Pepper [facility] [address], [address] [facility], [facility] [address] [place] [address] Business (1) In 3 days 03/01/2024 Comments: Use antibiotic ointment 4 times a day for the next 7 days and to complete the course. Please follow-up with the eye doctor for further evaluation management. Please return to the ED for any new or worsening symptoms. With: Address: When: XXXX NONE , [place] In 3 days In the event that this physician does not participate in your insurance network, please consult with your insurance company to find a nearby participating provider. Patient Education Materials: Bacterial Conjunctivitis, Adult, Gwqn-ry-Cwnk A MESSAGE TO ALL PATIENTS REGARDING OPIOIDS PRESCRIPTION OPIOIDS: WHAT YOU NEED TO KNOW Prescription opioids can be used to help relieve ninewpam-mw-rikeut pain and are often prescribed following a surgery or injury, or for certain health conditions. These medications can be an important part of the treatment but also come with serious risks. It is important to work with your healthcare provider to make sure you are getting the safest, most effective care. WHAT ARE THE RISKS AND SIDE EFFECTS OF OPIOID USE? Prescription opioids carry serious risks of addiction and overdose, especially with prolonged use. An opioid overdose, often marked by slowed breathing, can cause sudden . The use of prescription opioids can have a number of side effects as well, even when taken as directed: ? Tolerance?meaning you might need to take more of the medication for the same pain relief ? Physical dependence?meaning you have symptoms of withdrawal when a medication is stopped ? Increased sensitivity to pain ? Constipation ? Nausea, vomiting, and dry mouth ? Sleepiness and dizziness ? Confusion ? Depression ? Low levels of testosterone that can result in lower sex drive, energy, and strength ? Itching and sweating RISKS ARE GREATER WITH: ? History of drug misuse, substance use disorder, or overdose ? Mental health conditions (such as depression or anxiety) ? Sleep apnea ? Older age (65 years and older) ? Avoid alcohol while taking prescription opioids. Also, unless specifically advised by your health care provider, medications to avoid include: ? Benzodiazepines (such as Xanax or Valium) ? Muscle relaxants (such as Soma or Flexeril) ? Hypnotics (such as Ambien or Lunesta) ? Other prescription opioids KNOW YOUR OPTIONS Talk to your health care provider about ways to manage your pain that don?t involve prescription opioids. Some of these options may actually work better and have fewer risks and side effects. Optionsmay include: ? Pain relievers such as acetaminophen, ibuprofen, and naproxen ? Some medication that are also used for depression or seizures ? Physical therapy and exercise ? Cognitive behavioral therapy, a psychological, goal-directed approach, in which patients learn how to modify physical, behavioral, and emotional triggers of pain and stress. IF YOU ARE PRESCRIBED OPIOIDS FOR PAIN: ? Never take opioids in greater amounts or more often than prescribed. ? Follow up with your primary health care provider. o Work together to create a plan on how to manage your pain. o Talk about ways to help manage your pain that don?t involve prescription opioids. o Talk about any and all concerns and side effects. ? Help prevent misuse and abuse o Never sell or share prescription opioids. o Never use another person?s prescription opioids. ? Store prescription opioids in a secure place and out of reach of others (this may include visitors, children, friends, and family). ? Safely dispose of unused prescription opioids: Find your community drug take- back program or bop.fm mail-back program, or flush them down the toilet, following guidance from the Food and Drug (more content not included)...Normal [facility] CenterUS NON OB TRANSVAGINALon [id number] NON OB TRANSVAGINALEXAMINATION: PELVIC ULTRASOUND 05/08/2022 TECHNIQUE: Transabdominal and transvaginal pelvic duplex ultrasound using B-mode/rajan scaled imaging, Doppler spectral analysis and color flow Doppler was obtained. COMPARISON: 07/13/2005 HISTORY: ORDERING SYSTEM PROVIDED HISTORY: Amenorrhea Patient unsure of LMP. FINDINGS: Measurements: Uterus: 7.8 x 4.1 x 3.1 cm Endometrial stripe: 6.5 mm Right Ovary:3.4 x 2.3 x 2.3 cm Left Ovary: 2.0 x 1.3 x 1.8 cm Ultrasound Findings: Uterus: Uterus demonstrates normal myometrial echotexture. Endometrial stripe: Endometrial stripe is within normal limits for a premenopausal patient. There is a minimal amount of endometrial fluid. Right Ovary: Right ovary is within normal limits. There is normal arterial and venous Doppler flow. There is a benign 1.8 cm cyst within the right ovary, likely a follicular cyst. Left Ovary: Left ovary is within normal limits. There is normal arterial and venous Doppler flow. Free Fluid: No evidence of free fluid. IMPRESSION: 1. Unremarkable sonographic appearance of the uterine myometrium. 2. Unremarkable sonographic appearance of the uterine endometrium for a premenopausal patient. However, the patient has amenorrhea. Consider a follow-up pelvic ultrasound in 6 weeks to reassess the endometrial stripe. 3. Unremarkable sonographic appearance of the bilateral ovaries, without evidence of torsion or mass. Interpreted by: Reyes Paulino MD Signed by: Reyes Paulino MD 05/08/22 Final resultOhio State Health SystemUS PELVIS COMPLETEon [id number] PELVIS COMPLETEEXAMINATION: PELVIC ULTRASOUND 05/08/2022 TECHNIQUE: Transabdominal and transvaginal pelvic duplex ultrasound using B-mode/rajan scaled imaging, Doppler spectral analysis and color flow Doppler was obtained. COMPARISON: 07/13/2005 HISTORY: ORDERING SYSTEM PROVIDED HISTORY: Amenorrhea Patient unsure of LMP. FINDINGS: Measurements: Uterus: 7.8 x 4.1 x 3.1 cm Endometrial stripe: 6.5 mm Right Ovary:3.4 x 2.3 x 2.3 cm Left Ovary: 2.0 x 1.3 x 1.8 cm Ultrasound Findings: Uterus: Uterus demonstrates normal myometrial echotexture. Endometrial stripe: Endometrial stripe is within normal limits for a premenopausal patient. There is a minimal amount of endometrial fluid. Right Ovary: Right ovary is within normal limits. There is normal arterial and venous Doppler flow. There is a benign 1.8 cm cyst within the right ovary, likely a follicular cyst. Left Ovary: Left ovary is within normal limits. There is normal arterial and venous Doppler flow. Free Fluid: No evidence of free fluid. IMPRESSION: 1. Unremarkable sonographic appearance of the uterine myometrium. 2. Unremarkable sonographic appearance of the uterine endometrium for a premenopausal patient. However, the patient has amenorrhea. Consider a follow-up pelvic ultrasound in 6 weeks to reassess the endometrial stripe. 3. Unremarkable sonographic appearance of the bilateral ovaries, without evidence of torsion or mass. Interpreted by: Reyes Paulino MD Signed by: Reyes Paulino MD 05/08/[address] Elizabeth Youngstown HospitalHPV DNA High Riskon 05-01-2022 Source.GENITAL - NOT SPECIFIEDNoMercy Health St. Elizabeth Youngstown HospitalComment on above:Performed By: #### HPVH #### [facility] [place] [address] It Help Desk Analyst: LIYAH Wallace [facility] Comment on above:Result Comment: This test amplifies and detects DNA of 14 high- risk HPV types associated with cervical cancer and its precursor lesions (HPV types 16,18, 31, 33, 35, 39, 45, 51, 52, 56, 58, 59, 66, and 68). Sensitivity may be affected by specimen collection methods, stage of infection, and the presence of interfering substances. Results should be interpreted in conjunction with other available laboratory and clinical data. A negative high-risk HPV result does not exclude the possibility of future cytologic HSIL or underlying CIN2-3 or cancer. This test is intended for medical purposes only and is not valid for the evaluation of suspected sexual abuse or for other forensic purposes.Performed By: #### HPVH #### [employer] [address] [address] It Help Desk Analyst: RENE WallaceV Type 16Not detectedCedar Hills HospitalComment on above:Performed By: #### HPVH #### [employer] [address] [place] [address] It Help Desk Analyst: RENE WallaceV Type 18DetectedAbPacific Christian HospitalComment on above:Performed By: #### HPVH #### [employer] [address] [place] [address] It Help Desk Analyst: Silverio Wallace High Risk HPVNot detectedCedar Hills HospitalComment on above:Performed By: #### HPVH #### [employer] [address] [place] [address] It Help Desk Analyst: LIYAH Wallace DNA High Riskon [id number] Sample.THIN PREPOhio State Health SystemComment on above:Performed By: #### HPVH #### [employer] [address] [place] [address] It Help Desk Analyst: Christofer Zepeda [facility] WOODWARDytologyon 97-20-4363Kzugbdzg(NOTE) INTERPRETATION Cervical material, (ThinPrep vial, Imaging-assisted review): Specimen Adequacy: Satisfactory for evaluation. - Endocervical/transformation zone component present. Descriptive Diagnosis: Negative for intraepithelial lesion or malignancy. Comments: Specimen was screened at [facility], [address] [place] [address] Wood Craftsman: EMMA Caro(ASCP) Electronically Signed Out lr/05/12/2022 Procedure/Addendum HPV Procedure Report Date Ordered: 04/30/2022 Status: Signed Out Date Complete: 05/01/2022 By: System Interface Date Reported: 05/01/2022 Sample: HPV Type 16 Result: Not Detected Ref Range: (Not Detected) Sample: HPV Type 18 Result: DETECTED Ref Range: (Not Detected) Sample: Other High Risk HPV Result: Not Detected Ref Range: (Not Detected) Sample: HPV Interp Result: Ref Range: (Not Detected) This test amplifies and detects DNA of 14 high-risk HPV types associated with cervical cancer and its precursor lesions (HPV types 16,18, 31, 33, 35, 39, 45, 51, 52, 56, 58, 59, 66, and 68). Sensitivity may be affected by specimen collection methods, stage of infection, and the presence of interfering substances. Results should be interpreted in conjunction with other available laboratory and clinical data. A negative high-risk HPV result does not exclude the possibility of future cytologic HSIL or underlying CIN2-3 or cancer. This test is intended for medical purposes only and is not valid for the evaluation of suspected sexual abuse or for other forensic purposes. 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 [place], [place] [address] [facility] State Health SystemComment on above: Performed By: #### PPPVP #### [facility] [address] [place] [address] It Help Desk Analyst: Christofer Zepeda MDHemoglobin A1Con 90-14-4530Jvcakgc [Mass/Vol]120 mg/dLNormalWvumedicine Barnesville HospitalComment on above:Result Comment: The ADA and AACC recommend providing the estimated average glucose result to permit better patient understanding of their HBA1c result.Performed By: #### GLYHGB, PROL, FT4, TSH #### [facility] [address] [place] [address] It Help Desk Analyst: Christofer Zepeda MDHbA1c (Bld) [Mass fraction]5.8 %Normal4.0-6.0 [facility] Barnesville HospitalComment on above:Performed By: #### GLYHGB, PROL, FT4, TSH #### [address] [address] It Help Desk Analyst: VIKA Wallacerolactinon 68-14-5682Wbttcuqxk56.73 ng/mLNormal 4.79-23.30W[facility]umedicine Barnesville HospitalComment on above:Result Comment: The presence of macroprolactin may cause interference in female patients with various endocrinological diseases or during .Performed By: #### GLYHGB, PROL, FT4, TSH #### [address] [address] It Help Desk Analyst: Christofer Zepeda MDThyroid Stim. Horm.on 51-32-4458Odegrlp Stim. Horm.1.74 uIU/mLNormal0.30-5.00[facility]umedicine Barnesville HospitalComment on above: Performed By: #### GLYHGB, PROL, FT4, TSH #### [facility] [address] [place] [address] It Help Desk Analyst: Christofer Zepeda MDThyroxine, Freeon 57-45-8079Gacqkamqs, Free1.05 ng/dLNormal0.93-1.70Mer Samnorwood Medical CenterComment on above:Performed By: #### GLYHGB, PROL, FT4, TSH #### [facility] [address] [place] [address] It Help Desk Analyst: ALEXANDRA Wallace THYROXINE INDEX T7on 59-91-4134ZTF5.01 Normal1.30-4.50The [facility] SystemComment on above:Performed By: #### T7, TSH #### [facility] [address] [place] [address] Dr. Kiley KumariT3U33.0 %Fefawu83.0-39.0The [facility] SystemComment on above: Performed By: #### T7, TSH #### [facility] [address] [place] [address] Dr. Kiley Christine4 [Mass/Vol]6.10 ug/dLNormal4.80-13.90The [facility] Comment on above:Performed By: #### T7, TSH #### [facility] [address] [place] [address] Dr. Kiley BeanHomati 46-98-4494THM9.636 uIU/mLNormal0.358-3.740Ohio[facility] City Methodist HospitalComment on above:Performed By: #### T7, TSH #### [facility] [address] [place] [address] Dr. Kiley KumariINSULINon 69-32-6429Bcjvnzh3.7 uIU/mLNormal2.6-24.9The [facility] SystemComment on above:Performed By: #### INSULIN #### [facility] [address] [place] [address] Dr. Kiley Kaur AUTO DIFFon 29-71-7624BDGG #0.1 103/ulNormal0.0-0.1The [facility] SystemComment on above:Performed By: #### CBC #### [facility] [address] [place] [address] Dr. Kiley KumariBasophils/100 WBC (Bld)0.6 %Normal0.2-2.0The [facility] Comment on above:Performed By: #### CBC #### [facility] [address] [place] [address] Dr. Kiley Diana #0.2 103/ulNormal0.0-0.7The [facility] SystemComment on above: Performed By: #### CBC #### [facility] [address] [place] [address] Dr. Kiley Neelyosinophils/100 WBC (Bld)2.2 %Normal0.9-7.0The [facility] Comment on above:Performed By: #### CBC #### [facility] [address] [place] [address] Dr. Kiely Neelyrythrocyte distribution width (RBC) [Ratio]13.7 %Boqiex75.0-15.0 The [facility] Health SystemComment on above:Performed By: #### CBC #### [facility] [address] [place] [address] Dr. Kiley KumariHematocrit (Bld) [Volume fraction]45.4 %Hqjavk76.0-48.0The [facility] SystemComment on above:Performed By: #### CBC #### [facility] [address] [place] [address] Dr. Kiley KumariHemoglobin (Bld) [Mass/Vol]15.0 g/oPJxhuna68.0-16.0The [facility] SystemComment on above:Performed By: #### CBC #### [facility] [address] [place] [address] Dr. Kiley King #0.02 10e3/ulNormal0.00-0.03The [facility] SystemComment on above:Performed By: #### CBC #### [facility] [address] [place] [address] Dr. Kiley King %0.2 %Normal0.0-0.5The [facility] SystemComment on above: Performed By: #### CBC #### [facility] [address] [place] [address] Dr. Kiley Schwarz #4.2 103/ulCritically high1.2-3.8The [facility] Comment on above:Performed By: #### CBC #### [facility] [address] [place] [address] Dr. Kiley Donaldsonmphocytes/100 WBC (Bld)45.2 %Kuyxzo66.5-60.0[facility] Methodist HospitalComment on above:Performed By: #### CBC #### [facility] [address] [place] [address] Dr. Kiley Park DIFF REQNONormalThe [facility] SystemComment on above: Performed By: #### CBC #### [facility] [address] [place] [address] Dr. Kiley Rodriges (RBC) [Entitic mass]30.6 qqZgreez91.7-34.0The [facility] SystemComment on above:Performed By: #### CBC #### [facility] [address] [place] [address] Dr. Kiley Rodriges (RBC) [Mass/Vol]33.0 g/qJPqwjck78.9-35.2The [facility] SystemComment on above:Performed By: #### CBC #### [facility] [address] [place] [address] Dr. Kiley Huddleston (RBC) [Entitic vol]92.7 kMYaqzsf65.0-99.0The [facility] SystemComment on above:Performed By: #### CBC #### [facility] [address] [place] [address] Dr. Kiley Izaguirre #0.7 103/ulNormal0.3-0.8The [facility] SystemComment on above:Performed By: #### CBC #### [facility] [address] [place] [address] Dr. Kiley Weissocytes/100 WBC (Bld)7.5 %Normal1.7-12.0[facility] Comment on above:Performed By: #### CBC #### [facility] [address] [place] [address] Dr. Yilan ChangNEUT #4.1 103/ulNormal1.4-6.5The [facility] SystemComment on above:Performed By: #### CBC #### [facility] [address] [place] [address] Dr. Kiley Mijaresophils/100 WBC (Bld)44.3 %Mgprwb65.0-75.0The [facility] SystemComment on above:Performed By: #### CBC #### [facility] [address] [place] [address] Dr. Kiley Torreslet mean volume (Bld) [Entitic vol]9.5 fLNormal9.5-13.5The [facility] SystemComment on above:Performed By: #### CBC #### [facility] [address] [place] [address] Dr. Kiley YeT414 103/xmPeljjb490-594Zjr [facility] SystemComment on above: Performed By: #### CBC #### [facility] [address] [place] [address] Dr. Kiley KumariRBC4.90 106/ulNormal4.20-5.40The [facility] SystemComment on above:Performed By: #### CBC #### [facility] [address] [place] [address] Dr. Kiley BaptisteBC9.3 103/ulNormal4.0-11.0The [facility] SystemComment on above: Performed By: #### CBC #### [facility] [address] [place] [address] Dr. Kiley Garcia THYROXINE INDEX T7on 51-30-4963XVH9.42NormalThe [facility] SystemComment on above:Performed By: #### LIPID, T7, TSH, CMP #### [facility] [address] [place] [address] Dr. Kiley KumariT3U36.0 %Mxjyvm96.5-40.5The [facility] SystemComment on above: Performed By: #### LIPID, T7, TSH, CMP #### [facility] [address] [place] [address] Dr. Yilan ChangT4 [Mass/Vol]9.50 ug/dLNormal4.80-13.90The [facility] Comment on above:Performed By: #### LIPID, T7, TSH, CMP #### [facility] [address] [address] [address] Kiley KumariGLYCOHEMOGLOBIN A1Con 39-52-8147BKH RECOMMENDATIONSEE BELOWPomerene HospitalComment on above:Result Comment: ADA RECOMMENDED LIMIT 4.0 - 6.0 ADA THERAPEUTIC TARGET < 7.0 ACTION SUGGESTED > 7.0Performed By: #### A1C #### [facility] [address] [place] [address] Dr. Kiley KumariGlucose [Mass/Vol]117 mg/dLNoUniversity Hospitals Beachwood Medical CenterComment on above:Performed By: #### A1C #### [facility] [address] [place] [address] Dr. Kiley KumariHbA1c (Bld) [Mass fraction]5.7 %Normal4.5-6.2The [facility] SystemComment on above:Performed By: #### A1C #### [facility] [address] [place] [address] Dr. Kiley Ruff 33-07-1168Oxxe [Mass/Vol]185.0 ug/dLCritically high 50.0-170.0The [facility] SystemComment on above:Performed By: #### IRON #### [facility] [address] [place] [address] Dr. Kiley KumariLIPID PROFILEon 05-38-4952RYQI-HDL RATIO NORMSEE Barnesville HospitalComment on above:Result Comment: 3.3 - 4.4 LOW RISK 4.4 - 7.1 AVERAGE RISK 7.1 - 11.0 MODERATE RISK >11.0 HIGH RISKPerformed By: #### LIPID, T7, TSH, CMP #### [facility] [address] [place] [address] Dr. Kiley KumariCholesterol [Mass/Vol]209 mg/dLCritically high<=200The [facility] SystemComment on above:Performed By: #### LIPID, T7, TSH, CMP #### [facility] [address] [address] [address] Kiley Tomasesterol in HDL [Mass/Vol]66 mg/dLCritically ndck45-45IsxSelect Medical [facility], [place] on above:Performed By: #### LIPID, T7, TSH, CMP #### [facility] [address] [address] [address] Kiley Tomasesterol in LDL [Mass/Vol]136.4 mg/dLNoUniversity Hospitals Beachwood Medical CenterComment on above:Performed By: #### LIPID, T7, TSH, CMP #### [facility] [address] [address] [address] Kiley Ibarra.total/Cholesterol in HDL [Mass ratio]3.2 {ratio} NormalThe [facility] SystemComment on above:Performed By: #### LIPID, T7, TSH, CMP #### [facility] [address] [address] [address] Kiley Modi NORMAL> or = 60 mg/dl - LOW CARDIOVASCULAR RISK <40 mg/dl - HIGH CARDIOVASCULAR RISKNoUniversity Hospitals Beachwood Medical CenterComment on above:Performed By: #### LIPID, T7, TSH, CMP #### [facility] [address] [address] [address] Kiley Lomeli CALC NORMALSEE BELOWGrand Lake Joint Township District Memorial HospitalComment on above:Result Comment: <100 mg/dl OPTIMAL 100 - 129 mg/dl NEAR OR ABOVE OPTIMAL 130 - 159 mg/dl BORDERLINE HIGH 160 - 189 mg/dl HIGH >190 mg/dl VERY HIGH Performed By: #### LIPID, T7, TSH, CMP #### [facility] [address] [address] [address] Kiley KumariTriglyceride [Mass/Vol]33 mg/dLNormal<=150[facility] Comment on above:Performed By: #### LIPID, T7, TSH, CMP #### [facility] [address] [address] [address] Kiley WhalenLDL CALC6.6 mg/dLNormalThe [facility] City HospitalComment on above: Performed By: #### LIPID, T7, TSH, CMP #### [facility] [address] [place] [address] Dr. Kiley Jackson 14(COMP METB)on 93-01-3870Ultvsbm [Mass/Vol]3.9 g/dLNormal 3.4-5.0The [facility] SystemComment on above:Performed By: #### LIPID, T7, TSH, CMP #### [facility] [address] [place] [address] Dr. Kiley KumariAlbumin/Globulin [Mass ratio]1.3 {ratio}NormalThe [facility] SystemComment on above:Performed By: #### LIPID, T7, TSH, CMP #### [facility] [address] [place] [address] Dr. Kiley Gomez [Catalytic activity/Vol]66 U/IFvtdzk82-706Oln [facility] SystemComment on above:Performed By: #### LIPID, T7, TSH, CMP #### [facility] [address] [place] [address] Dr. Kiley Murphy [Catalytic activity/Vol]30 U/ILzjnyk24-58Qqf [facility] SystemComment on above:Performed By: #### LIPID, T7, TSH, CMP #### [facility] [address] [place] [address] Dr. Kiley Mcnair gap [Moles/Vol]13.5 mmol/LNormalThe [facility] Comment on above:Performed By: #### LIPID, T7, TSH, CMP #### [facility] [address] [place] [address] Dr. Kiley Bear [Catalytic activity/Vol]18 U/XCuzazu64-26Dyb [facility] SystemComment on above:Performed By: #### LIPID, T7, TSH, CMP #### [facility] [address] [place] [address] Dr. Kiley KumariBilirubin [Mass/Vol]0.6 mg/dLNormal0.2-1.0The [facility] Comment on above:Performed By: #### LIPID, T7, TSH, CMP #### [facility] [address] [address] [address] Kiley KumariCalcium [Mass/Vol]8.6 mg/dLNormal8.5-10.1The [facility] Comment on above:Performed By: #### LIPID, T7, TSH, CMP #### [facility] [address] [address] [address] Kiley KumariChloride [Moles/Vol]104 mmol/RSxgwyi36-539Fsm [facility] Comment on above:Performed By: #### LIPID, T7, TSH, CMP #### [facility] [address] [address] [address] Kiley KumariCO2 [Moles/Vol]27.0 mmol/KImedaj99.0-32.0The [facility] Comment on above:Performed By: #### LIPID, T7, TSH, CMP #### [facility] [address] [place] [address] Dr. Kiley KumariCreatinine [Mass/Vol]0.79 mg/dLNormal0.55-1.02The [facility] SystemComment on above:Performed By: #### LIPID, T7, TSH, CMP #### [facility] [address] [address] [address] Kiley NeelyGFR-AF STATELESS>60Normal>=60The [facility] SystemComment on above:Performed By: #### LIPID, T7, TSH, CMP #### [facility] [address] [place] [address] Dr. Kiley NeelyGFR-NON AF STATELESS>60Normal>=60The [facility] SystemComment on above:Performed By: #### LIPID, T7, TSH, CMP #### [facility] [address] [address] [address] Kiley KumariGlobulin (S) [Mass/Vol]3.1 g/dLNormalThe [facility] SystemComment on above:Performed By: #### LIPID, T7, TSH, CMP #### [facility] [address] [place] [address] Dr. Kiley KumariGlucose [Mass/Vol]110 mg/dLCritically bbmj26-617Odx [facility] City HospitalComment on above:Performed By: #### LIPID, T7, TSH, CMP #### [facility] [address] [place] [address] Dr. Kiley KumariPotassium [Moles/Vol]4.5 mmol/LNormal3.5-5.1[facility] Comment on above:Performed By: #### LIPID, T7, TSH, CMP #### [facility] [address] [place] [address] Dr. Kiley KumariProtein [Mass/Vol]7.0 g/dLNormal6.1-8.2[facility] Comment on above:Performed By: #### LIPID, T7, TSH, CMP #### [facility] [address] [place] [address] Dr. Kiley KumariSodium [Moles/Vol]140 mmol/KJyxvjt112-220ZfmOhiohealth Grove City Methodist Hospital Comment on above:Performed By: #### LIPID, T7, TSH, CMP #### [facility] [address] [place] [address] Dr. Kiley KumariUrea nitrogen [Mass/Vol]15.0 mg/dLNormal7.0-18.0[facility] HospitalComment on above:Performed By: #### LIPID, T7, TSH, CMP #### [facility] [address] [place] [address] Dr. Kiley Ruiz nitrogen/Creatinine [Mass ratio]19.0 mg/mgNormalThBethesda North HospitalComment on above:Performed By: #### LIPID, T7, TSH, CMP #### [facility] [address] [place] [address] Dr. Kiley Mccann 29-98-3417IXE4.300 uIU/mLCritically low0.470-4.680[facility] HospitalComment on above:Performed By: #### LIPID, T7, TSH, CMP #### [facility] [address] [place] [address] Dr. Kiley Diaz RANGESEE BELOWNoUniversity Hospitals Beachwood Medical CenterComment on above: Result Comment: <0.34 UIU/ml HYPERTHYROID 0.34-5.60 UIU/ml EUTHYROID >5.60 UIU/ml HYPOTHYROIDPerformed By: #### LIPID, T7, TSH, CMP #### [facility] [address] [place] [address] Dr. Kiley CHIRINOS LOWER EXTREMITY VENOUS LEFTon 65-47-0801CbjgqEncompass Health [facility] Lower Extremities DVT Study Procedure Patient Name NGHIA Date of Study 04/16/2019 LAURA Cortes Date of 1980 Gender Female Age 39 year(s) Race Room Number Corporate ID # [id number] Patient MR # [id number] Pain Medicine Physician Cora Car RVT Interpreting Physician Anjel Villanueva Referring Referring Physician Ruben Michele Nurse Practitioner Procedure Type of Study: Veins: Lower Extremities DVT Study, Venous Scan Lower Left. Indications for Study:Hx of DVT and Pulmonary Embolism. Patient Status:Out Patient. - Critical Result:[facility] Beba Gross RN at 10:39 AM. Conclusions SummaryAge indeterminate deep vein thrombosis of the left leg involving the popliteal vein. No evidence of superficial venous thrombosis in the left lower extremity. Signature Left I mpression: The common femoral, femoral and tibial veins demonstrate normal compressibility and augmentation. The popliteal vein demonstrates partial compressibility. Normal compressibility of the great saphenous vein. Intimal thickening of lesser saphenous vein. Risk Factors History + +---- ------+ + !Diagnosis !Date !Comments ! +--------- -+ + + !Previous !12/16/2017!Beba Gross from Dr. Ruben Michele MD office ! !Scan ! !states that patient had venous duplex done at ! ! !![facility] on 12/16/2017 stating AI DVT in the left mid! ! ! !- distal popliteal vein. ! + +- ---------+ + - The patient's risk factor(s) include: arterial hypertension. - Current - Every day. - The patient has kidney cancer. Velocities are measured in cm/s ; Diameters are measured in cm Right Lower Extremities DVT Study Measurements Right Doppler Measurements + +------+------+ + !Lo cation !Signal!Reflux!Reflux (msec) ! + +------+------+ + !Common Femoral !Phasic! ! ! + +------+------+ + Left Lower Extremities DVT Study Measurements Left 2D Measurements + + + + + !Location !Visualized!Compressibility!Thrombosis! + + + + + !CommonFemoral !Yes !Yes !None ! + + + + + !Prox Femoral !Yes !Yes !None ! + + + + + !Mid Femoral !Yes !Yes !None ! + + + + + !Dist Femoral !Yes !Yes !None ! + + + + + !Deep Femoral !Yes !Yes !None ! + + + + + !Popliteal !Yes !Partial !AI ! + -------+ + + + !Sapheno Femoral Junction !Yes !Yes !None ! +-------- + + + + !PTV !Yes !Yes !None ! +-------- + + + + !Peroneal !Yes !Yes !None ! +-- + + + + !Gastroc !Yes !Yes !None ! + + + + + !GSV Thigh !Yes !Yes !None ! + + + + + !GSV Knee !Yes !Yes !None ! + + + + + !GSV Ankle!Yes !Yes !None ! + + + + + !SSV!Yes !Yes !None ! + + + + + LeftDoppler Measurements + + +------+ + !L ocation !Signal !Reflux!Reflux (msec) ! + + +------+ + !Common Femoral !Phasic ! ! ! + + +------+ + !Prox Femoral !Phasic ! ! ! + + +------+--- + !Popliteal !Diminished! ! ! + + +------+ + [facility] Incoming Cardio Results From [facility]/Ge - 04/16/2019 10:53 PM EST [facility]ascular Lower Extremities DVT Study Procedure Patient Name NGHIA Date of Study 04/16/2019 LAURA Cortes Date of 1980 Gender Female Age 39 year(s) Race Room Number Corporate ID # [id number] Patient MR # [id number] Pain Medicine Physician Cora Car RVT Interpreting Physician Anjel Villanueva Referring Referring Physician Ruben Michele Nurse Practitioner Procedure Type of Study: Veins: Lower Extremities DVT Study, Venous Scan Lower Left. Indications for Study:Hx of DVT and Pulmonary Embolism. Patient Status:Out Patient. - Critical Result:[facility] Beba Gross RN at 10:39 AM. Conclusions Summary Age indeterminate deep vein thrombosis of the left leg involving the popliteal vein. No evidence of superficial venous thrombosis in the left lower extremity. Signature Left Impression: The common femoral, femoral and tibial veins demonstrate normal compressibility and augmentation. The popliteal vein demonstrates partial compressibility. Normal compressibility of the great saphenous vein. Intimal thickening of lesser saphenous vein. Risk Factors History + + + + !Diagnosis !Date !Comments ! + + + + !Previous !12/16/2017!Beba rGoss from Dr. Ruben Michele MD office ! !Scan ! !states that patient had venous duplex done at ! ! ! ![facility] on 12/16/2017 stating AI DVT in the left mid! ! ! !- distal popliteal vein. ! + + + + - The patient's risk factor(s) include: arterial hypertension. - Current - Every day. - The patient has kidney cancer. Velocities are measured in cm/s ; Diameters are measured in cm Right Lower Extremities DVT Study Measurements Right Doppler Measurements + +------+------+ + !Location !Signal!Reflux!Reflux (msec) ! + +------+------+ + !Common Femoral !Phasic! ! ! + +------+------+ + Left Lower Extremities DVT Study Measurements Left 2D Measurements + + + + + !Location !Visualized!Compressibility!Thrombosis! + + + + + !Common Femoral !Yes !Yes !None ! + + + + + !Prox Femoral !Yes !Yes !None ! + + + + + !Mid Femoral !Yes !Yes !None ! + + + + + !Dist Femoral !Yes !Yes !None ! + + + + + !Deep Femoral !Yes !Yes !None ! + + + + + !Popliteal !Yes !Partial !AI ! + + + + + !Sapheno Femoral Junction !Yes !Yes !None ! + + + + + !PTV !Yes !Yes !None ! + + + + + !Peroneal !Yes !Yes !None ! + + + + + !Gastroc !Yes !Yes !None ! + + + + + !GSV Thigh !Yes !Yes !None ! + + + + + !GSV Knee !Yes !Yes !None ! + + + + + !GSV Ankle !Yes !Yes !None ! + + + + + !SSV !Yes !Yes !None ! + + + + + Left Doppler Measurements + + +------+ + !Location !Signal !Reflux!Reflux (msec) ! + + +------+ + !Common Femoral !Phasic ! ! ! + + +------+ + !Prox Femoral !Phasic ! ! ! + + +------+ + !Popliteal !Diminished! ! ! + + +------+ + [facility]- [place], [place] Vital Signs Date TimeVital SignValuePerforming CuvfmouccLnvnlizq44-01-4426 01:29-0400Body asadwtnvkcv71.7 [degF]Sarah Ortez [facility]09-19-2024 01:29-0400 Diastolic blood rkowmfos72 mm[Hg]Sarah Ortez [address]09-19-2024 01:29-0400Heart rate71 /Leti Ortez [address] [place], [place] 3813509-19-2024 01:29-0400 Respiratory rate16 /Leti Ortez [address]09-19-2024 01:29-7875YdT4% (BldA) [Mass fraction]97 %rohanvamati Ortez [address] [place], [place] 7740709-19-2024 01:29-0400 Systolic blood mm[Hg][facility] Hospital[facility]i Ortez [address] [place] [address] Encounters Encounter DateEncounter TypeCare ProviderFacilityStart: 03-04-2025 End: 72-20-6835Ojgqtv outpatient visit 10 minutesRobdaniela Reyesr OD Work Phone: [facility] Eye CareComment on above: Keratoconjunctivitis sicca due to decreased tear production, bilateral (Primary Dx); Superficial punctate keratitis of both eyes; Allergic conjunctivitis of both eyesStart: 03-04-2025 End: 61-71-9852wsxfgetaqkKHDSXQ W DELGADOGENERPAlisonMount Carmel Health Systemtart: 01-26-2025 End: 59-68-2513ZrkjqlKpmnlrm Raymond COAProMedica Physicians Eye CareComment on above:Allergic conjunctivitis of both eyesStart: 01-25-2025 End: 84-89-1088Dnjmcj outpatient visit 25 minutesRobbin W Barnesville OD Work Phone: [facility] Physicians Eye CareComment on above:Allergic conjunctivitis of both eyes (Primary Dx); Superficial punctate keratitis of both eyes; Keratoconjunctivitis sicca due to decreased tear production, bilateralStart: 01-25-2025 End: 66-13-2221TngqqfApgxly W Wagener OD Work Phone: [facility] Physicians Eye CareComment on above:Allergic conjunctivitis of both eyesStart: 10-31-2024 End: 84-27-5715Roislqskn department patient visitJESENIA Flanagan [facility]start: 02-27-2024 End: 69-66-8919Wdzdefllf department patient visitSarah Ortez [facility] Start: 05-08-2022 End: 23-22-9543uyhysxnagnZBLUYULakeHealth Beachwood Medical Centertart: 04-28-2022 End: 12-91-9045bqsnvvnvbcIRXGIXSelect Medical Specialty Hospital - Akrontart: 04-28-2022 End: 89-64-4650Snnsbultj for gynecological examination (general) (routine) without abnormal findingsSelect Medical Specialty Hospital - Akrontart: 04-27-2022 End: 12-57-1294jbtxpkxsldTUBOHBSelect Medical Specialty Hospital - Akrontart: 03-19-2022 End: 41-72-4638ovarkurmkpUPFFLV CRAMERFacility:L2Wwsjt: 10-09-2021 End: 27-18-9352uydsdtmuuaJNWZTU CRAMERFacility:I5Lflui: 04-16-2019 End: 00-62-1496Iapdchucwz hospital visit by physicianStv Vascular RmSTVZ Vascular LabComment on above:Arrived Procedures DateProcedureProcedure DetailPerforming ClinicianStart: 03-20-4948Qtfzcyfawyw observation [Identifier] in Cervix by Cyto stainJake Jessica OD Work Phone: Start: 95-70-1152Mcq-scan xtr veins unilateral/limited studyRichraya Michele Work Phone: Plan of Treatment DateCare ActivityDetailAuthorStart: 56-41-0449UErH,Tdap and Td Vaccines (2 - Td or Tdap)DTaP,Tdap and Td Vaccines (2 - Td or Tdap)[facility] SystemStart: 64-98-4464Ytvaaao ScreeningTobacco ScreeningLake County Memorial Hospital - [facility] SystemStart: 32-40-3717Lpuuhig ScreeningTobacco ScreeningLake County Memorial Hospital - [facility] SystemStart: 05-81-9714Ymudc BMI ScreeningAdult BMI ScreeningProMercy Health Perrysburg Hospitaltart: 05-27-2025 End: 13-55-9028Ihbmyfe encounter helnzmmnc63/18/2025 3:15 PM EST Office Visit [facility] [address] [place] [phone] Jake Jessica, OD [address] [address] [facility] Physicians Eye CareStart: 40-98-2991Tyzzymrju for malignant neoplasm of cervixPap SmearCarteret Health Caretart: 03-04-2025 End: 58-75-3367Faavmtt encounter relwrybbh27/25/2025 3:45 PM EDT Office Visit [facility] [address] [place] [address] [phone] Jake Jessica, OD [address] [facility] [place] [address] [facility] Eye CareStart: 15-00-3459CQEHG-19 Vaccine ( season)COVID-19 Vaccine ( season)[facility] SystemStart: 75-01-5005Pvtwozcwc vaccinationInfluenza VaccineLake County Memorial Hospital - [facility] SystemStart: 71-62-6182HXNWV-19 Vaccine ( season)COVID-19 Vaccine ( season)[facility]aretart: 33-89-5329Quaqplhx cancer screenCervical cancer screenChildren's Hospital of [facility]: 89-14-0583Jrpsilupc vaccinationFlu vaccine (#1)[facility]: 27-27-9438KRgA/Tdap/Td vaccine (1 - Tdap)DTaP/Tdap/Td vaccine (1 - Tdap)[facility]: 81-30-2896Wfmwsqllf Vaccine (1 of 2 - 13+ 2-dose series) Varicella Vaccine (1 of 2 - 13+ 2-dose series)[facility]: 13-06-1249Ipqppoxmne ScreeningDepression ScreeningCarteret Health Caretart: 50-90-8836Ywihdhhgrauk 0-64 years Vaccine (1 of 1 - PPSV23)Pneumococcal 0-64 years Vaccine (1 of 1 - PPSV23)[facility]: 48-82-9486Pknzrix CounselingTobacco CounselingUK [facility] Immunizations Immunization DateImmunizationNotesCare IudfbkrwKykudtmv30-22-7414kvdunjmmx virus vaccine, unspecified formulationRobbin Barnesville OD Work Phone: [facility]08-03-2023tetanus toxoid, reduced diphtheria toxoid, and acellular pertussis vaccine, adsorbedRobbin Barnesville OD Work Phone: [facility] Payers DatePayer CategoryPayerPolicy [id number] [facility] Member Subscriber Plan / Payer (Effective 2024-Present) Name: Laura العراقي Relation to Subscriber: Self Name: Laura العراقي Payer ID: [id number] (NAIC) Group ID: Not on file Type: Not on file Address: [address] [id number] [id number] 2019MedicaidMOLINAMedicaidMOLINA HEALTHCARE [place] MEDICAID [facility] [place] MEDICA xxxxxxxxxxxx 2018-Present [phone] [address] [address] [place] [address]ysmplyelhvvi [id number] 2.16840.1.448626.3.57[id number] 2.16840.1.640628.3.57[id number] 2.840.1.967024.3.57[id number] 2.16840.1.366687.3.57[id number] 2.16840.1.779088.3.57[id number] 2.16840.1.490787.3.57[id number] 2.16840.1.935966.3.57[id number] 2.16840.1.042256.3.57[id number] Social History DateTypeDetailFacilityStart: 01-14-2019 End: 41-05-9639Vuivxwp smoking status NHISCurrent every day smokerProAcmc Healthcare System GlenbeighHistory of tobacco useCigarette SmokerChildren's Hospital of Columbus: 01-14-2019 End: 32-41-1550Iekozzmgyj smoked current (pack per day) - ReportedChildren's Hospital of Columbus: 01-14-2019 End: 16-23-5675Ahjxmdc intakeNoKettering Health Hamiltontart: 33-34-1656Rkc Assigned At BirthNot on [facility]: 83-71-7198Ymwtgof smoking statusLight tobacco smoker (finding)[facility] Hamiltontart: 01-57-3715Bxgsddz use and exposureSmokeless tobacco non-userCarteret Health Caretart: 01-25-2025 End: 74-05-7267Yzketauhn beverage intakeCurrent non-drinker of alcohol (finding) UK HealthcareChildcareUnkAppleton Municipal Hospital SystemStart: 01-11-2015 SexFemale (finding)[facility] Functional Status XbrhCgmcpesuowDpvazsKbbddvwc41-54-3164Lrhbrlpjxf StatusN/AFisher [facility] Clinical Notes 02-27-2024 to 03-04-2025 Note Date & PpbcWzvwHzjuczrr93-75-2286 History of Present illness Narrative* Jake Jessica, HARSHA - 03/04/2025 3:45 PM EDT Laura العراقي had concerns including Allergic conjunctivitis of both eyes. HPI EP/ME Patient is here for a 6 week follow up. Patient is currently using FML OU TID, Pataday OU once daily and Optive Refresh Gel OU TID with some improvement. Last edited by Jake Jessica, HARSHA on 03/04/2025 4:01 PM. ROS Negative for: Constitutional, Gastrointestinal, Neurological, Skin, Genitourinary, Musculoskeletal,HENT, Endocrine, Cardiovascular, Eyes, Respiratory, Psychiatric, Allergic/Imm, Heme/Lymph Last edited by Jono Ghosh CMA on 03/04/2025 3:46 PM. No current outpatient medications on file as of 03/04/2025. (Ophthalmic Drugs) No current facility-administered medications on file as of 03/04/2025. (Ophthalmic Drugs) Outpatient Medications as of 03/04/2025 (Other) Medication Sig carboxymethylcellulose (REFRESH TEARS) 1 % ophthalmic solution Administer 1 drop to both eyes in the morning and 1 drop at noon and 1 drop in the evening and 1 drop before bedtime. fluorometholone (FML LIQUIFILM) 0.1 % ophthalmic suspension Administer 1 drop to both eyes in the morning and 1 drop at noon and 1 drop in the evening and 1 drop before bedtime. gabapentin (NEURONTIN) 600 mg tablet Take by mouth. olopatadine (PATADAY ONCE DAILY RELIEF) 0.7 % drops Administer 1 drop to both eyes in the morning. ketorolac (ACULAR) 0.5 % ophthalmic solution Administer 1 drop to both eyes every 6 (six) hours. rivaroxaban (XARELTO) 20 mg tablet tablet Take 20 mg by mouth daily. No current facility-administered medications on file as of 03/04/2025. (Other) History reviewed. No pertinent family history. Social History Socioeconomic History Marital status: Single Spouse name: Not on file Number of children: Not on file Years of education: Not on file Highest education level: Not on file Occupational History Not on file Tobacco Use Smoking status: Every Day Current packs/day: 1.00 Average packs/day: 1 pack/day for 27.0 years (27.0 ttl pk-yrs) Types: Cigarettes Smokeless tobacco: Never Substance and Sexual Activity Alcohol use: No Drug use: No Sexual activity: Not on file Other Topics Concern Not on file Social History Narrative Not on file Social Drivers of Health Financial Resource Strain: Not on file Food Insecurity: No Food Insecurity (10/31/2024) Hunger Screening Food Insecurity - Worry: Never True Food Insecurity - Inability: Never True Transportation Needs: Not on file Physical Activity: Not on file Stress: Not on file Social Connections: Not on file Interpersonal Safety: Not on file Housing Instability: Not on file Ms. العراقي has a past medical history of DVT (deep venous thrombosis) ([facility]) and Wilm's tumor of left kidney ([facility]). She has a past surgical history that includes Nephrectomy; Splenectomy (1990); Pancreas surgery; section; and Cervix surgery. Base Eye Exam Visual Acuity (Snellen - Linear) Right Left Dist sc 20/25 20/25 -1 Near sc J1+ OU Tonometry (Applanation, 3:51 PM) Right Left Pressure 14 14 Pupils Dark Light Shape React Right 5 4 Round Brisk Left 4 5 Round Brisk Neuro/Psych Oriented x3: Yes Mood/Affect: Normal Slit Lamp and Fundus Exam External Exam Right Left External Normal Normal Slit Lamp Exam Right Left Lids/Lashes Normal Normal Conjunctiva/Sclera 2+ bulbar staining, Chemosis, 4+ Follicles + bulbar staining, Chemosis, 4+ Follicles Cornea Heavy inf SPK, TBUT 2-3 secs Heavy inf SPK, TBUT 2-3 secs Anterior Chamber Deep and quiet Deep and quiet Iris Round and reactive Round and reactive Lens Clear Clear Diagnosis 1. Keratoconjunctivitis sicca due to decreased tear production, bilateral 2. Superficial punctate keratitis of both eyes 3. Allergic conjunctivitis of both eyes 1. Keratoconjunctivitis sicca due to decreased tear production, bilateral (Primary) 2. Superficial punctate keratitis of both eyes Very dry eyes with poor tear break up time Patient to use Restasis 1gtt BID OU. Sample and pamphlet given. Use Refresh Optive gel 1gtt QHS OU. Coupons given. 3. Allergic conjunctivitis of both eyes Seasonal allergy symptoms and swelling noted. Continue Pataday 1 drop daily in each eye for 2 weeks, then daily as needed for symptoms Patient Education: Questions were encouraged to stated satisfaction from the patient. Discussed with patient that failure to follow up as recommended (appointment time, onset of new ocular symptoms) can lead to permanent loss of vision and/or blindness. Patient understands and agrees. Return Visit: 3 months follow up after Restasis Physician: Jake Jessica OD [employer] Driver: Verito Palacios Scribed for and in the presence of Jake Jessica OD by Verito Palacios Patient accompanied by self. documented in this encounterUK Healthcare08-19-2025 Miscellaneous Notes* Telephone Encounter - YESSY Morgan - 01/26/2025 11:52 AM EDT Pharmacy requested confirmation of Pataday instructions; confirmed with Romelia at [facility] one drop daily both eyes. documented in this encounterUK Healthcare08-19-2025 Telephone encounter Note* Telephone Encounter - YESSY Morgan - 01/26/2025 11:52 AM EDT Pharmacy requested confirmation of Pataday instructions; confirmed with Romelia at [facility] one drop daily both eyes. [facility]08-18-2025 History of Present illness Narrative* Jake Jessica, OD - 01/25/2025 2:15 PM EDT Laura Cortes Karleejorge had concerns including Dry Eye. HPI Dry Eye Laterality: both eyes Associated signs and symptoms: irritation, burning, tearing, discharge, light sensitivity and seasonal allergies Timing: throughout the day Duration: 2 years Treatments tried: artificial tears (Allergy eye drops) Comments [employer]/ME patient here for dry eye consultation. She notes that she has allergies to cats and to grass/pollen and has tried artificial tears and antihistamine eye drops. Her eyes have been raw and light sensitive. She is currently using OTC dry eye drops and also antihistamine drops. She is using an OTC ointment nightly. Last edited by Verito Palacios on 01/25/2025 2:58 PM. No current outpatient medications on file. (Ophthalmic Drugs) No current facility-administered medications for this visit. (Ophthalmic Drugs) Current Outpatient Medications (Other) Medication Sig carboxymethylcellulose (REFRESH TEARS) 1 % ophthalmic solution Administer 1 drop to both eyes in the morning and 1 drop at noon and 1 drop in the evening and 1 drop before bedtime. fluorometholone (FML LIQUIFILM) 0.1 % ophthalmic suspension Administer 1 drop to both eyes in the morning and 1 drop at noon and 1 drop in the evening and 1 drop before bedtime. gabapentin (NEURONTIN) 600 mg tablet Take by mouth. (Patient not taking: Reported on 01/25/2025) ketorolac (ACULAR) 0.5 % ophthalmic solution Administer 1 drop to both eyes every 6 (six) hours. olopatadine (PATADAY ONCE DAILY RELIEF) 0.7 % drops Instill 1 drop to eye in the morning. rivaroxaban (XARELTO) 20 mg tablet tablet Take 20 mg by mouth daily. No current facility-administered medications for this visit. (Other) No family history on file. Social History Socioeconomic History Marital status: Single Spouse name: Not on file Number of children: Not on file Years of education: Not on file Highest education level: Not on file Occupational History Not on file Tobacco Use Smoking status: Every Day Current packs/day: 1.00 Average packs/day: 1 pack/day for 27.0 years (27.0 ttl pk-yrs) Types: Cigarettes Smokeless tobacco: Never Substance and Sexual Activity Alcohol use: No Drug use: No Sexual activity: Not on file Other Topics Concern Not on file Social History Narrative Not on file Social Drivers of Health Financial Resource Strain: Not on file Food Insecurity: No Food Insecurity (10/31/2024) Hunger Screening Food Insecurity - Worry: Never True Food Insecurity - Inability: Never True Transportation Needs: Not on file Physical Activity: Not on file Stress: Not on file Social Connections: Not on file Interpersonal Safety: Not on file Housing Instability: Not on file Ms. العراقي has a past medical history of DVT (deep venous thrombosis) ([facility]) and Wilm's tumor of left kidney ([facility]). She has a past surgical history that includes Nephrectomy; Splenectomy (1990); Pancreas surgery; section; and Cervix surgery. Base Eye Exam Visual Acuity (Snellen - Linear) Right Left Dist sc 20/30 20/30 Tonometry (Applanation, 3:12 PM) Right Left Pressure 12 13 Pupils Pupils Right PERRL Left PERRL Visual Castillo Right Left Full Full Extraocular Movement Right Left Full, Ortho Full, Ortho Slit Lamp and Fundus Exam External Exam Right Left External Normal Normal Slit Lamp Exam Right Left Lids/Lashes Normal Normal Conjunctiva/Sclera 4+ bulbar staining, Chemosis, 4+ Follicles 4+ bulbar staining, Chemosis, 4+ Follicles Cornea Heavy diffuse SPK, TBUT 2-3 secs Heavy diffuse SPK, TBUT 2-3 secs Anterior Chamber Deep and quiet Deep and quiet Iris Round and reactive Round and reactive Lens Clear Clear Diagnosis 1. Allergic conjunctivitis of both eyes 2. Superficial punctate keratitis of both eyes 3. Keratoconjunctivitis sicca due to decreased tear production, bilateral 1. Allergic conjunctivitis of both eyes (Primary) Seasonal allergy symptoms and swelling noted. Patient to start FML QID OU x 2 weeks then BID x 2 week and Refresh Gel QHS OU. Return in 5-6 weeks. After finishing FML Start Pataday 0.7% 1 drop daily in each eye for 4 weeks, then daily as needed for symptoms - fluorometholone (FML LIQUIFILM) 0.1 % ophthalmic suspension; Administer 1 drop to both eyes in the morning and 1 drop at noon and 1 drop in the evening and 1 drop before bedtime. Dispense: 10 mL; Refill: 0 - olopatadine (PATADAY ONCE DAILY RELIEF) 0.7 % drops; Instill 1 drop to eye in the morning. Dispense: 5 mL; Refill: 4 2. Superficial punctate keratitis of both eyes 3. Keratoconjunctivitis sicca due to decreased tear production, bilateral Very dry eyes with SPK. Patient to start FML QID OU x 2 weeks then BID x 2 week and Refresh Gel QHS OU. Return in 5-6 weeks. Start Refresh Plus 1 drop in each eye 3-4 times daily. Sample and coupons given. - fluorometholone (FML LIQUIFILM) 0.1 % ophthalmic suspension; Administer 1 drop to both eyes in the morning and 1 drop at noon and 1 drop in the evening and 1 drop before bedtime. Dispense: 10 mL; Refill: 0 - carboxymethylcellulose (REFRESH TEARS) 1 % ophthalmic solution; Administer 1 drop to both eyes inthe morning and 1 drop at noon and 1 drop in the evening and 1 drop before bedtime. Dispense: 15 mL; Refill: 3 Patient Education: Questions were encouraged to stated satisfaction from the patient. Discussed with patient that failure to follow up as recommended (appointment time, onset of new ocular symptoms) can lead to permanent loss of vision and/or blindness. Patient understands and agrees. Return Visit: 5-6 weeks dry eye/FML check Physician: Jake Jessica OD [employer] Driver: Verito Palacios Scribed for and in the presence of Jake Jessica OD by Verito Palacios Patient accompanied by self. documented in this encounterUniversity Hospitals TriPoint Medical CenterRoadmap Asc[facility] Providence [id number] Evaluation + Plan noteExtracted from:Title:ED NoteAuthor:Sarah Ortez DO ADate:02/27/24 Conjunctivitis (H10.9: Unspe cified conjunctivitis) Orders: erythromycin ophthalmic, 0.5 in, OPTH, QID for 7 day(s), 3.5 gm, Refill(s) 0 erythromycin ophthalmic, 1 sushila, Ointment, OPTH, Once, Stop date 02/27/24 2:10:00 EDT, STAT, Start date 02/27/24 2:10:00 EDT fluorescein ophthalmic, 1 mg, 1 EA, Test, OPTH, Once, Stop date 02/27/24 1:47:00 EDT, STAT, Start date 02/27/24 1:47:00 EDT tetracaine ophthalmic, 2 drop(s), Soln-Opth, OPTH, Once, Stop date 02/27/24 1:47:00 EDT, STAT, Start date 02/27/24 1:47:00 EDT [facility] [phone] Hospital Discharge instructions Patient Education 02/27/2024 02:19:05 Bacterial Conjunctivitis, Adult, Ktlm-pi-Jlfy Bacterial Conjunctivitis, Adult Bacterial conjunctivitis is an infection of your conjunctiva. This is the clear membrane that covers the white part of your eye and the inner part of your eyelid. This infection can make your eye: Red or pink. Itchy or irritated. This condition spreads easily from person to person (is contagious) and from one eye to the other eye. What are the causes? This condition is caused by germs (bacteria). You may get the infection if you come into close contact with: A person who has the infection. Items that have germs on them (are contaminated), such as face towels, contact lens solution, or eye makeup. What increases the risk? You are more likely to get this condition if: You have contact with people who have the infection. You wear contact lenses. You have a sinus infection. You have had a recent eye injury or surgery. You have a weak body defense system (immune system). You have dry eyes. What are the signs or symptoms? Thick, yellowish discharge from the eye. Tearing or watery eyes. Itchy eyes. Burning feeling in your eyes. Eye redness. Swollen eyelids. Blurred vision. How is this treated? Antibiotic eye drops or ointment. Antibiotic medicine taken by mouth. This is used for infections that do not get better with drops or ointment or that last more than 10 days. Cool, wet cloths placed on the eyes. Artificial tears used 2 6 times a day. Follow these instructions at home: Medicines Take or apply your antibiotic medicine as told by your doctor. Do not stop using it even if you start to feel better. Take or apply kpsc-qmh-illxsfm and prescription medicines only as told by your doctor. Do not touch your eyelid with the eye-drop bottle or the ointment tube. Managing discomfort Wipe any fluid from your eye with a warm, wet washcloth or a cotton ball. Place a clean, cool, wet cloth on your eye. Do this for 10 20 minutes, 3 4 times a day. General instructions Do not wear contacts until the infection is gone. Wear glasses until your doctor says it is okay towear contacts again. Do not wear eye makeup until the infection is gone. Throw away old eye makeup. Change or wash your pillowcase every day. Do not share towels or washcloths. Wash your hands often with soap and water for at least 20 seconds and especially before touching your face or eyes. Use paper towels to dry your hands. Do not touch or rub your eyes. Do not drive or use heavy machinery if your vision is blurred. Contact a doctor if: You have a fever. You do not get better after 10 days. Get help right away if: You have a fever and your symptoms get worse all of a sudden. You have very bad pain when you move your eye. Your face: ?Hurts. ?Is red. ?Is swollen. You have sudden loss of vision. Summary Bacterial conjunctivitis is an infection of your conjunctiva. This infection spreads easily from person to person. Wash your hands often with soap and water for at least 20 seconds and especially before touching your face or eyes. Use paper towels to dry your hands. Take or apply your antibiotic medicine as told by your doctor. Contact a doctor if you have a fever or you do not get better after 10 days. This information is not intended to replace advice given to you by your health care provider. Make sure you discuss any questions you have with your health care provider. Document Revised: 09/06/2021 Document Reviewed: 09/06/2021 [employer] Patient Education 2023 [employer]. Follow Up Care 02/27/2024 01:06:20 With:Lex Pepper Address: [facility] [address], [facility] [address] [place] [address]- Business (1) When:03/01/2024 Comments:Use antibiotic ointment 4 times a day for the next 7 days and to complete the course. Please follow-up with the eye doctor for further evaluation management. Please return to the ED for any new or worsening symptoms. With:XXXX NONE Address: [place] When:Within 3 Day(s) [facility] 09-19-2024 NoteED Patient Education Note Infectious Disease Bacterial Conjunctivitis, Adult Bacterial conjunctivitis is an infection of your conjunctiva. This is the clear membrane that covers the white part of your eye and the inner part of your eyelid. This infection can make your eye: ? Red or pink. ? Itchy or irritated. This condition spreads easily from person to person (is contagious) and from one eye to the other eye. What are the causes? This condition is caused by germs (bacteria). You may get the infection if you come into close contact with: ? A person who has the infection. ? Items that have germs on them (are contaminated), such as face towels, contact lens solution, or eye makeup. What increases the risk? You are more likely to get this condition if: ? You have contact with people who have the infection. ? You wear contact lenses. ? You have a sinus infection. ? You have had a recent eye injury or surgery. ? You have a weak body defense system (immune system). ? You have dry eyes. What are the signs or symptoms? ? Thick, yellowish discharge from the eye. ? Tearing or watery eyes. ? Itchy eyes. ? Burning feeling in your eyes. ? Eye redness. ? Swollen eyelids. ? Blurred vision. How is this treated? ? Antibiotic eye drops or ointment. ? Antibiotic medicine taken by mouth. This is used for infections that do not get better with dropsor ointment or that last more than 10 days. ? Cool, wet cloths placed on the eyes. ? Artificial tears used 2?6 times a day. Follow these instructions at home: Medicines ? Take or apply your antibiotic medicine as told by your doctor. Do not stop using it even if you start to feel better. ? Take or apply swfh-rsg-wrxfpld and prescription medicines only as told by your doctor. ? Do not touch your eyelid with the eye-drop bottle or the ointment tube. Managing discomfort ? Wipe any fluid from your eye with a warm, wet washcloth or a cotton ball. ? Place a clean, cool, wet cloth on your eye. Do this for 10?20 minutes, 3?4 times a day. General instructions ? Do not wear contacts until the infection is gone. Wear glasses until your doctor says it is okay to wear contacts again. ? Do not wear eye makeup until the infection is gone. Throw away old eye makeup. ? Change or wash your pillowcase every day. ? Do not share towels or washcloths. ? Wash your hands often with soap and water for at least 20 seconds and especially before touching your face or eyes. Use paper towels to dry your hands. ? Do not touch or rub your eyes. ? Do not drive or use heavy machinery if your vision is blurred. Contact a doctor if: ? You have a fever. ? You do not get better after 10 days. Get help right away if: ? You have a fever and your symptoms get worse all of a sudden. ? You have very bad pain when you move your eye. ? Your face: ? Hurts. ? Is red. ? Is swollen. ? You have sudden loss of vision. Summary ? Bacterial conjunctivitis is an infection of your conjunctiva. ? This infection spreads easily from person to person. ? Wash your hands often with soap and water for at least 20 seconds and especially before touching your face or eyes. Use paper towels to dry your hands. ? Take or apply your antibiotic medicine as told by your doctor. ? Contact a doctor if you have a fever or you do not get better after 10 days. This information is not intended to replace advice given to you by your health care provider. Make sure you discuss any questions you have with your health care provider. Document Revised: 09/06/2021 Document Reviewed: 09/06/2021 Aide Patient Education ? [address] [employer] Evaluation note* Diagnosis Allergic conjunctivitis of both eyes- Primary Other chronic allergic conjunctivitis Superficial punctate keratitis of both eyes Keratoconjunctivitis sicca due to decreased tear production, bilateral documented [facility] this [facility] Diagnosis Allergic conjunctivitis of both eyes Other chronic allergic conjunctivitis documented in this [facility] Diagnosis Allergic conjunctivitis of both eyes Other chronic allergic conjunctivitis [facility] Diagnosis Keratoconjunctivitis sicca due to decreased tear production, bilateral- Primary Superficial punctate keratitis of both eyes Allergic conjunctivitis of both eyes Other chronic allergic conjunctivitis documented in this [facility] Narrative No data available for this section [facility] InstructionsNot on filedocumented in this encounter [facility] on filedocumented in this encounter [facility]ructionsNot on filedocumented in this encounter [facility] SystemProgress note No data available for this section [facility] Advance Directives TypeDate RecordedPatient RepresentativeExplanationAdvance Directives and Living WillPower of Doughnut Dough Mixer Summary Purpose Family History No Family History Records FoundNo Family History Records Found No data available for this section No Family History Records FoundNo Family History Records FoundNo Family History Records Found Additional Source Comments Reason for Visit (unrecogniz ed section and content) StatusReasonSpecialtyDiagnoses / ProceduresReferred By ContactReferred To ContactClosedVascular Lab Procedures HC NIV VENOUS [place] [address] [place] [address] [facility] [place] [address] ReasonCommentsDry EyeReasonCommentsMed Change RequestReasonOnset DateCommentsMed Ywqygf0001/26/2025ReasonCommentsAllergic conjunctivitis of both eyes INFORMATION SOURCE (unrecogn ized section and content) DATE CREATED AUTHOR 03/20/2022 [facility] DATE CREATED AUTHOR AUTHOR'S ORGANIZ ATION 05/12/2022 [facility] DATE CREATED AUTHOR AUTHOR'S ORGANIZ ATION 03/02/[address] [facility] DATE CREATED AUTHOR AUTHOR'S ORGANIZ ATION 11/06/2024 [facility] DATE CREATED AUTHOR AUTHOR'S ORGANIZ ATION 03/12/2025 [facility] Care Teams (unrecognized sec tion and content) Team MemberRelationshipSpecialtyStart DateEnd Date Nahomy Lei, MATERIAL CONTROL SUPERVISOR-PIT CRANE OPERATOR [address] [place] [address] PCP - GeneralNurse Practitioner10/31/24 FOR RECORDS PERTAINING TO PATIENTS WHO ARE OR HAVE BEEN ENROLLED IN A CHEMICAL DEPENDENCY/SUBSTANCEABUSE PROGRAM, SOME INFORMATION MAY BE OMITTED. This clinical summary was aggregated from multiple sources. Caution should be exercised in using it in the provision of clinical care. This summary normalizes information from multiple sources, and as a consequence, information in this document may materially change the coding, format and clinical context of patient data. In addition, data may be omitted in some cases. CLINICAL DECISIONS SHOULD BE BASED ON THE PRIMARY CLINICAL RECORDS. [facility] [employer] provides no warranty or guarantee of the accuracy or completeness of information in this document.
--- OUTSIDE RECORDS SUMMARY | 2025-04-20 14:24 | XMS_ITS | Clinical Summary ---
Author Organization [facility] Address [address], [address] [place] [address] Care Team Providers Care Visual Journalist Name Role Phone Avril Arango ACQUISITION MARKETING COORDINATOR - [facility] Primary Care Provide r Allergies Active AllergyReactionsCriticalityNoted DateCommentsCodeineOther (See Comments) 01/16/2016Acetaminophen-CodeineItching,HlsmVig1211/09/2013 sob, light headed, Sertraline Hcl11/09/2013 Panic attack Medications MedicationSigDispense QuantityRefillsLast FilledStart DateEnd DateStatus rivaroxaban (XARELTO) 20 MG TABS tablet Indications:Acute deep vein thrombosis (DVT) of lower extremity, unspecified laterality, unspecified vein (HCC)Take 1 tablet by mouth daily 30 tablet Active gabapentin (NEURONTIN) 300 MG capsule take 1 capsule by mouth three times a day2Active medroxyPROGESTERone (DEPO-PROVERA) 150 MG/ML injection Indications:Menorrhagia with regular cycleInject 1 mL into the muscle every 3 months 1 mL 2Active Active Problems ProblemNoted DateDiagnosed DateTobacco abuse11/09/2015Heavy mbsqzmm3510/29/2013 Irregular fkfidyl2710/29/2013HGSIL on Pap smear of etiwkg4310/29/2013 Overview (02/14/2015): replace inactive diagnosis DVT (deep venous thrombosis)10/06/2013 Overview (05/23/2016): 1. Recurrent blood clots. 2. Left lower extremity DVT with bilateral subsegmental PE diagnosed early December 2012. 3. Progression of left lower extremity DVT late December 2012 occuring in the presence of Coumadin therapy with therapeutic INR consistent with Coumadin failure. 4. Initially treated with Pradaxa due to lack of insurance, now maintained on Xarelto. 5. Previous history of right lower extremity DVT in 2007 and second episode 2008, occurring well smoking and taking control. 6. Chronic left lower extremity pain. Pulmonary cweznhgc83/29/2014 Overview (11/13/2015): Replacing Inactive Diagnoses Family History Medical HistoryRelationNameCommentsHeart FailurePaternal GrandfatherHypertension Paternal GrandfatherCancerPaternal GrandmotherbreastDiabetesPaternal Grandmother RelationNameStatusCommentsPaternal GrandfatherPaternal Grandmother Social History Tobacco UseTypesPacks/DayYears UsedDateSmoking Tobacco: Every PfiZadywsjqcm102 Smokeless Tobacco: Never Tobacco Cessation:Ready to Q uit: Not Asked; Counseling Given: Not Answered Alcohol UseStandard Drinks/WeekCommentsNo0 (1 standard drink = 0.6 oz pure alcohol)CommentsUnknownSex and Gender InformationValueDate RecordedSex Assigned at BirthNot on fileLegal JpiBdhfdz42/10/2013 12:57 PM ESTGender IdentityNot on fileSexual OrientationNot on file Last Filed Vital Signs Vital SignReadingTime TakenCommentsBlood Krykhhvl316/7211 1:08 PM EST Hkyre704601/14/2019 3:31 PM AYAUjebokwueyn78.4 ??C (99.3 ??F)01/14/2019 3:31 PM EDTRespiratory Qjkb241907/16/2016 11:43 AM ESTOxygen Opduibzjml127%09/03/2016 10:10 PM EDTInhaled Oxygen Concentration--Knmjmh58.9 kg (121 lb)04/27/2022 1:08 PM TUANkrduf329.9 cm (5' 1 )04/27/2022 1:08 PM ESTBody Mass Index22.8604/27/2022 1:08 PM EST Plan of Treatment Health MaintenanceDue DateLast DoneCommentsHib vaccine (1 of 1 - Risk 1-dose series)07/11/1983Meningococcal (ACWY) vaccine (1 - Risk 2-dose series)1984 Meningococcal B vaccine (1 of 4 - Increased Risk)1992Depression Screen 1994Varicella vaccine (1 of 2 - 13+ 2-dose series)1995Hepatitis C jyodsw8604/10/2000DTaP/Tdap/Td vaccine (1 - Tdap)2001Hepatitis B vaccine (1 of 3 - 19+ 3-dose series)2001Pneumococcal 0-49 years Vaccine (1 of 2 - PCV)2001Breast cancer dmkhjj5204/10/20220825Oftjvr55/01/0419C7B test (Diabetic or Prediabetic)Flu vaccine (#1)501/, 07/31/2019, 01/31/2017, Additional history existsCOVID-19 Vaccine ( - season)2025Pap smear, 10/06/2018, 02/06/2017, Additional history existsCervical cancer ynxzjd6304/27/2027HPV (without or with Pap), 10/06/2018, 02/06/2017, Additional history exists Shingles vaccine (1 of 2)2032HIV xhmrknLlayfrida54/27/2014HPV vaccine (No Doses Required)CompletedHepatitis A vaccineAged OutNo longer eligible based on patient's age to complete this topicPolio vaccineAged OutNo longer eligible based on patient's age to complete this topic Procedures Procedure NamePriorityDate/TimeAssociated DiagnosisCommentsHEMOGLOBIN M0JDiemvtd 04/27/2022 2:00 PM EST Amenorrhea HUMAN PAPILLOMAVIRUS (HPV) DNA PROBE THIN PREP HIGH VBHNPnlazhe64/18/2022 7:23 AM EST PROCEDURES TECH ZZAPKRYRZzyyryi91/18/2022 7:23 AM EST HIV SEBRWOMhpysnx75/27/2014 10:30 PM EDT Venereal disease contact from Last 3 Months or Most Recently Relevant to Health Maintenance Results * Hemoglobin A1C (04/27/2022 2:00 PM EST)ComponentValueRef RangeTest Method Analysis TimePerformed AtPathologist SignatureHemoglobin A1C5.84.0 - 6.0 % 04/27/2022 2:00 PM ESTMERCY LABORATORIESEstimated Avg Dsrzohb768ad/dL 04/27/2022 2:00 PM ESTMERCY LABORATORIESComment: The ADA and AACC recommend providing the estimated average glucose result to permit better patient understanding of their HBA1c result. Specimen (Source)Anatomical Location / LateralityCollection Method / Volume Collection TimeReceived TimeBLOOD SPECIMEN / Qljvyxp3004/27/2022 2:00 PM EST 04/27/2022 2:41 PM EST Narrative Authorizing ProviderResult TypeResult StatusSheljhoana Hallman ACQUISITION MARKETING COORDINATOR - CNM CHEMISTRY ORDERABLESFinal ResultPerforming OrganizationAddressCity/State/ZIP CodePhone Number [place] [address] [address] [phone] * (ABNORMAL) Human papillomavirus (HPV) DNA probe thin prep high risk (04/27/2022 7:23 AM EST)ComponentValueRef RangeTest MethodAnalysis Time Performed AtPathologist SignatureSpecimen Description.GENITAL - NOT SPECIFIED 04/27/2022 7:23 AM ESTMERCY LABORATORIESHPV Sample.THIN PREP04/27/2022 7:23 AM ESTMERCY LABORATORIESHPV, Genotype 16Not DetectedNot Xklxsrcc87/18/2022 7:23 AM ESTM[facility] LABORATORIESHPV, Genotype 18DETECTED(A)Not Hfqkskfz59/18/2022 7:23 AM ESTM[facility] LABORATORIESHPV, High Risk OtherNot DetectedNot Vsfusdiw33/18/2022 7:23 AM ESTMER[facility] LABORATORIESHPV, Opxnzydglppvwz15/18/2022 7:23 AM ESTMERCY LABORATORIESComment: This test amplifies and detects DNA of 14 high-risk HPV types associated with cervical cancer and its precursor lesions (HPV types 16,18, 31, 33, 35, 39, 45, 51, 52, 56, 58, 59, 66, and 68). ? Sensitivity may be affected by specimen collection methods, stage of infection, and the presence of interfering substances. Results should be interpreted in conjunction with other available laboratory and clinical data. A negative high-risk HPV result does not exclude the possibility of future cytologic HSIL or underlying CIN2-3 or cancer. ? This test is intended for medical purposes only and is not valid for the evaluation of suspected sexual abuse or for other forensic purposes. Specimen (Source)Anatomical Location / LateralityCollection Method / Volume Collection TimeReceived TimeSPECIMEN FROM GENITAL SYSTEM / Nfwjyxm5604/27/2022 7:23 AM EST Narrative Authorizing ProviderResult TypeResult StatusSheljhoana Hallman ACQUISITION MARKETING COORDINATOR - CNM HEMATOLOGY ORDERABLESEdited Result - FinalPerforming OrganizationAddress City/State/ZIP CodePhone Number [place] [id number], [facility] [phone] * PROCEDURES TECH Cytology (04/27/2022 7:23 AM EST)ComponentValueRef RangeTest Method Analysis TimePerformed AtPathologist SignatureCytology ReportINTERPRETATION Cervical material, (ThinPrep vial, Imaging-assisted review): Specimen Adequacy: ? Satisfactory for evaluation. ? - Endocervical/transformation zone component present. Descriptive Diagnosis: ? Negative for intraepithelial lesion or malignancy. Comments: ? Specimen was screened at [facility], [address] [place] [id number] Take Away Man: ?? CS ALMAS1 [facility] [place](ASCP) Electronically Signed Out lr/05/12/2022 Procedure/Addendum HPV Procedure Report ? Date Ordered: ? 04/30/2022 ? Status: Signed Out ? Date Complete: ? 05/01/2022 ? By: System Interface ? Date Reported: ? 05/01/2022 ? Sample: ??HPV Type 16 ?Result: ?? Not Detected ?Ref Range: (Not Detected) Sample: ??HPV Type 18 ?Result: ?? DETECTED ?Ref Range: (Not Detected) Sample: ??Other High Risk HPV ?Result: ?? Not Detected ?Ref Range: (Not Detected) Sample: ??HPV Interp ?Result: ? Ref Range: (Not Detected) This test amplifies and detects DNA of 14 high-risk HPV types associated with cervical cancer and its precursor lesions (HPV types 16,18, 31, 33, 35, 39, 45, 51, 52, 56, 58, 59, 66, and 68). ? Sensitivity may be affected by specimen collection methods, stage of infection, and the presence of interfering substances. Results should be interpreted in conjunction with other available laboratory and clinical data. A negative high-risk HPV result does not exclude the possibility of future cytologic HSIL or underlying CIN2-3 or cancer. ? This test is intended for medical purposes only and is not valid for the evaluation of suspected sexual abuse or for other forensic purposes. ?? Source: A: Cervical material, (ThinPrep vial, Imaging-assisted review) Clinical History Z01.419 Routine photographer apprentice lithographic exam without abnormal findings Co-Test: ??ThinPrep Pap with high risk HPV testing GYNECOLOGIC CYTOLOGY REPORT Patient Name: NELDA العراقي [facility] Rec: [id number] Path Number: [id number] [facility] ??LABORATORIES CONSULTING PATHOLOGISTS [facility] ANATOMIC PATHOLOGY [address] [place] [address]. ??[place], [place] [address] [facility] LABORATORIESSpecimen (Source)Anatomical Location / LateralityCollection Method / VolumeCollection TimeReceived TimeCERVICAL OKYKUFNH85/18/2022 7:23 AM EST04/30/2022 7:23 AM EST Narrative Authorizing ProviderResult TypeResult StatusSheljhoana Mendez Hallman ACQUISITION MARKETING COORDINATOR - CNM PATHOLOGY/CYTOLOGY ORDERABLESFinal ResultPerforming OrganizationAddress City/State/ZIP CodePhone Number [address] [phone] * HIV-1 and HIV-2 Antibodies (04/05/2014 10:30 PM EDT)ComponentValueRef Range Test MethodAnalysis TimePerformed AtPathologist SignatureHIV 1/2 Antibody OQLZJBGWHJSHB34/28/2014 12:09 PM EDTMHPN LABComment: ? Interpretation: ? The presence of antibody to HIV and its association with the potential infectivity, transmission or diagnosis of AIDS has not been established. Furthermore, a 'Non-Reactive' test result does not exclude the possibility of exposure to or infection with HIV. If the above test result is 'Reactive', the Laboratory will order the confirmatory test. [facility] [address] Specimen (Source)Anatomical Location / LateralityCollection Method / Volume Collection TimeReceived TimeBLOOD SPECIMEN / Jraamzy0304/05/2014 10:30 PM EDT 04/05/2014 10:30 PM EDT Narrative Authorizing ProviderResult TypeResult StatusMychelljena Davis DOIMMUNOLOGY ORDERABLESFinal ResultPerforming OrganizationAddressCity/State/ZIP CodePhone Number [employer] Information TechnologyVictoria [place] [id number], [facility] [phone] [facility] LAB from Last 3 Months or Most Recently Relevant to Health Maintenance Insurance Care Teams Team MemberRelationshipSpecialtyStart DateEnd Avril Arango, ACQUISITION MARKETING COORDINATOR - COMMERCIAL LITIGATION ASSOCIATE [address] [place] [address] PCP - Ohuhsxd40/18/22
--- OUTSIDE RECORDS SUMMARY | 2025-04-20 14:24 | XMS_ITS | Patient Health Record ---
Author Organization [facility] [place] Address [address] [place] [address] Care Team Providers Care Fish Culturist Name Role Phone None, Unknown or Primary Care Provider Unavailab sol Vladimir Zulema Unavailable [phone] Allergies Allergen (clinical drug ingredient) Drug/Non Drug Allergy documented on EMR Reaction Allergy Type Onset Date Status Xanax (alprazolam)UnknownDrug AllergyActiveTylenol with Codeine #3 (acetaminophen-codeine)Notes: tachycardiaDrug AllergyActivecodeineCodeineUnknown Drug AllergyActive Results Component Value Reference Range Notes CBC AUTO DIFF (Not yet revie wed by provider) Interpretation: Performing Lab: Notes/Report: [facility] , White Blood Count 10.6 4.0-11.0 10 3/uL Red Blood Count4.344.20-5.40 10 6/eYVhigkbahub01.412.0-16.0 g/hMBvtaevkvgt31.5 36.0-48.0 %Mean Corpuscular Xaazjh05.381.0-99.0 fLMean Corpuscular Hemoglobin 30.926.7-34.0 pgMean Corpuscular HGB Conc33.129.9-35.2 g/dLRed Cell Distribution Width13.711.0-15.0 %Platelet Ezomv285996-469 10 3/uLMean Platelet Volume9.89.5- 13.5 fLNeutrophils Percent Auto36.643.0-75.0 %Lymphocytes Percent Auto47.520.5- 60.0 %Monocytes Percent Auto9.01.7-12.0 %Eosinophils Percent Auto5.80.9-7.0 % Basophils Percent Auto0.80.2-2.0 %Immature Granulocytes Pct Auto0.30.0-0.5 % Neutrophils Absolute Auto3.91.4-6.5 10 3/uLLymphocytes Absolute Auto5.01.2-3.8 10 3/uLMonocytes Absolute Auto1.00.3-0.8 10 3/uLEosinophils Absolute Auto0.60.0- 0.7 10 3/uLBasophils Absolute Auto0.10.0-0.1 10 3/uLImmature Granulocytes Abs Auto0.030.00-0.03 10 3/uLPerforming Lab:see noteML - [facility] LB FERRITIN (Not yet reviewed by provider) Interpretation: Performing Lab: Notes/Report: [facility] ,Gulebnyk13.08.0-252.0 ng/mLPerforming Lab:see note - [facility] LB PROF 14(COMP METB) (Not yet reviewed by provider) Interpretation: Performing Lab: Notes/Report: [facility] ,Ewcwtc243130-355 mmol/LPotassium3.73.5-5.1 mmol/SWzplqqin78352-186 mmol/LCarbon Zdlcrol72.721.0-32.0 mmol/LAnion Gap10.9Efvodbw5238-851 mg/dLBlood Urea Nitrogen 13.07.0-18.0 mg/dLCreatinine0.900.55-1.02 mg/dLEstimated GFR ( Yareli>60 >=60 mL/min/1.73m 2Estimated GFR (Non- Ileana>60>=60 mL/min/1.73m 2BUN Creatinine Ratio14.3Posbumz1.38.5-10.1 mg/dLBilirubin Total0.40.2-1.0 mg/dL Aspartate Amino Uffupmdeluj1054-31 U/LAlanine Mulshkvibgredmau9792-54 U/L Alkaline Syomoodtjfb3881-691 U/LTotal Protein6.56.4-8.2 g/dLAlbumin Level3.43.4- 5.0 g/dLGlobulin3.1Albumin Globulin Ratio1.1Performing Lab:see noteML - [facility] LBCBC AUTO DIFF (Not yet reviewed by provider) Interpretation: Performing Lab: Notes/Report: [facility] ,White Blood Count9.54.0-11.0 10 3/uLRed Blood Count4.714.20-5.40 10 6/uL Faafssjtdz65.812.0-16.0 g/lYNvsxjuhtkv62.536.0-48.0 %Mean Corpuscular Vxredf80.5 81.0-99.0 fLMean Corpuscular Xfpoksxnzm56.426.7-34.0 pgMean Corpuscular HGB Conc 33.329.9-35.2 g/dLRed Cell Distribution Width13.311.0-15.0 %Platelet Jgqvf868 150-450 10 3/uLMean Platelet Zfneqq10.59.5-13.5 fLNeutrophils Percent Auto38.1 43.0-75.0 %Lymphocytes Percent Auto45.120.5-60.0 %Monocytes Percent Auto9.71.7- 12.0 %Eosinophils Percent Auto5.80.9-7.0 %Basophils Percent Auto1.20.2-2.0 % Immature Granulocytes Pct Auto0.10.0-0.5 %Neutrophils Absolute Auto3.61.4-6.5 10 3/uLLymphocytes Absolute Auto4.31.2-3.8 10 3/uLMonocytes Absolute Auto0.90.3-0.8 10 3/uLEosinophils Absolute Auto0.60.0-0.7 10 3/uLBasophils Absolute Auto0.10.0- 0.1 10 3/uLImmature Granulocytes Abs Auto0.010.00-0.03 10 3/uLPerforming Lab:see noteML - [facility] LBFERRITIN (Not yet reviewed by provider) Interpretation: Performing Lab: Notes/Report: [facility] ,Ozanzpxn56.08.0-252.0 ng/mLPerforming Lab:see noteML - [facility] LB FREE T4 (Not yet reviewed by provider) Interpretation: Performing Lab: Notes/Report: [facility] ,Free T41.050.76-1.46 ng/dLPerforming Lab:see noteML - [facility] LB IRON AND TIBC (Not yet reviewed by provider) Interpretation: Performing Lab: Notes/Report: [facility] ,Iron54.050.0-170.0 ug/dLTotal Iron Binding Xwjlaztj069.0250.0-450.0 ug/dL Percent Iron Yaqbyxbixq26.9Performing Lab:see note - [facility] LB LDH (Not yet reviewed by provider) Interpretation: Performing Lab: Notes/Report: [facility] ,Lactate Oviwljzqqjzkh01065-038 U/LPerforming Lab:see note - [facility] LBPROF 14(COMP METB) (Not yet reviewed by provider) Interpretation: Performing Lab: Notes/Report: [facility] ,Kfvmqf385675-486 mmol/LPotassium4.13.5-5.1 mmol/XWauajmis55060-078 mmol/LCarbon Jtzpore38.321.0-32.0 mmol/LAnion Gap9.3Mknivdn9149-181 mg/dLBlood Urea Nitrogen 18.07.0-18.0 mg/dLCreatinine0.750.55-1.02 mg/dLEstimated GFR ( Yareli>60 >=60 mL/min/1.73m 2Estimated GFR (Non- Ileana>60>=60 mL/min/1.73m 2BUN Creatinine Ratio24.0Uwurhdt8.78.5-10.1 mg/dLBilirubin Total0.30.2-1.0 mg/dL Aspartate Amino Ekgvhoitzvp7454-01 U/LAlanine Lkjrulhlixcqgldz8735-70 U/L Alkaline Iudztzseuaq9106-761 U/LTotal Protein6.76.4-8.2 g/dLAlbumin Level3.43.4- 5.0 g/dLGlobulin3.3Albumin Globulin Ratio1.0Performing Lab:see note - [facility] LBTSH (Not yet reviewed by provider) Interpretation: Performing Lab: Notes/Report: [facility] ,Thyroid Stimulating Hormone1.2170.358-3.740 uIU/mLPerforming Lab:see note - [facility] LBIRON AND TIBC (Not yet reviewed by provider) Interpretation: Performing Lab: Notes/Report: [facility] ,Iron74.050.0-170.0 ug/dLTotal Iron Binding Xvjgtztn254.0250.0-450.0 ug/dL Percent Iron Orwrctehto61.2Performing Lab:see noteML - [facility] LB Reason For Referral No Information Medications Medication SIG (Take, Route, Frequency, Duration) Notes Start Date End Date Status ferrous sulfate 325 mg 1 DAILY; Duration: 30 day s 01/13/2014UnknownCeleXA 10 mg1 DAILY; Duration: 30 days11/05/2014UnknownXarelto 10 MG1 tablet Orally Once a dayActiveVarenicline Tartrate 1 MGas directed Orally ActiveVarenicline Tartrate 0.5 MG1 tablet after eating with a full glass of water Orally Once a dayActiveXarelto 20 mg1 tablet DAILY; Duration: 90 days 11/15/2014UnknownVitamin C006/10/1899UnknownPercocet 325 mg-5 mg1 Q4H; Duration: 30 days08/16/2014UnknownPenlac 8%1 application DAILY; Duration: 30 daysAT BEDTIME OR 8 HRS BEFORE AZXVDKD3908/10/2014UnknownGabapentin 300 MG1 capsule Orally dx M54.9 TID; Duration: 30 days09/20/2022ctive Immunizations Vaccine Route Administration Date Status Comme nts Flu, (64484) -historic- 3-va lent, Split, Prsrvtve Free, 3 yrs & older, for IM use Unknown 03/07/2012 Administered Flu, (97487) -historic- 3-valent, Split, Prsrvtve Free, 3 yrs & older, for IM yzgEiyhskq84/29/2013AdministeredFlu, (20345) -historic- 3-valent, Split, 3 yrs & older, for IM yzvKtsrljo08/11/2010AdministeredFlu, (51469) -historic- 3-valent, Split, 3 yrs & older, for IM ghmRpuzhud77/29/2011dministered Problems Problem Type SNOMED Code ICD Code Onset Dates Problem Status W/U Status Risk Notes Problem Back pain (074531859) Back pain (M54.9) ActiveconfirmedProblemPain in limb (42652305)Hand pain, left (M79.642)Active confirmedProblemPersonal history of primary malignant neoplasm of kidney (945659586)History of kidney cancer (Z85.528)ActiveconfirmedProblem Thyrotoxicosis (96319933)Hyperthyroidism, subclinical (E05.90)Activeconfirmed ProblemHistory of thromboembolism of vein (996007556)History of deep venous thrombosis (Z86.718)ActiveconfirmedProblemAbnormal cytological finding in specimen from female genital organ (027449405)Abnormal cervical cytology (R87.619)Activeconfirmed Encounters Encounter Location Date Provider Diagnosis [facility] [address] [place] [address] 05/05/2024 [facility] [address] [place] [place] [address]/11/2024 [facility] [address] [place] [address]/[facility] Plan Of Treatment Pending Test Test Name Order Date CMP (COMPLETE METABOLIC PANEL) 0 CMP (COMPLETE METABOLIC PANEL) 4 CBC WITH ONCO AUTO DIFF (HWP) 02/04/2024 CBC WITH ONCO AUTO DIFF (P) 03/27/2021 CBC WITH ONCO AUTO DIFF (HWP) 03/01/2020 CBC WITH ONCO AUTO DIFF (HWP) 09/08/2020 TSH 03/27/2021 CBC WITH 3 PART DIFF 02/21/2015 CBC WITH 3 PART DIFF 05/23/2015 CBC WITH 3 PART DIFF 11/28/2015 COMPREHENSIVE METABOLIC PANEL 02/22/2015 FERRITIN 05/23/2015 FERRITIN 02/22/2015 IRON PROFILE 05/23/2015 IRON PROFILE 02/22/2015 D DIMER 01/14/2019 CBC AND AUTO DIFF * 05/21/2018 CBC AND AUTO DIFF * 01/14/2019 CBC AND AUTO DIFF * 05/23/2016 CBC AND AUTO DIFF * 11/21/2016 CBC AND AUTO DIFF * 05/15/2017 CBC AND AUTO DIFF * 11/13/2017 COMPREHENSIVE METABOLIC PANEL 11/13/2017 D DIMER 09/08/2020 D DIMER 03/01/2020 D DIMER 03/27/2021 CBC AUTO DIFF 09/17/2024 CBC AUTO DIFF 01/05/2025 FERRITIN 01/06/2025 FERRITIN 09/17/2024 FREE T4 01/06/2025 IRON AND TIBC 01/06/2025 IRON AND TIBC 09/17/2024 LDH 01/06/2025 PROF 14(COMP METB) 01/06/2025 PROF 14(COMP METB) 09/17/2024 TSH 01/06/2025 Next Appt Details Provider Name:Zulema Gilbert , 04/20/2025 03:00:00 PM, [address] [place], [address], Insurance Providers Payer Name Payer Address Payer Phone Subscriber Number Group Number Insured Name Patient Relationship to Insured Coverage Start Date Coverage End Date [employer] [place] [employer] [address] [place] [address] [id number] Lion العراقي - patient is the [id number] LARA EXCHG [address] ATTN CLAIMS [place], [place] [id number] Lion العراقي - patient is the [id number] Medical (General) History Medical History History ICD Code Hand pain, left M79.642 Hyperthyroidism, subclinical E05.90 History of deep venous thrombosis Z86.71 8 Abnormal cervical cytology R87.619 History of kidney cancer Z85.528 Back pain M54.9
--- OUTSIDE RECORDS SUMMARY | 2025-04-20 14:25 | XMS_ITS | Clinical Summary ---
Author Organization [facility] Address [address] [place] [address] Care Team Providers Care Physician General Practice Name Role Phone Unavailable Primary Care Provider Unavailabl e Social History Tobacco UseTypesPacks/DayYears UsedDateSmoking Tobacco: Never Assessed CommentsUnknownSex and Gender InformationValueDate RecordedSex Assigned at Not on fileLegal UtuInzerh72/16/2024 1:01 PM EDTGender IdentityNot on fileSexual OrientationNot on file Plan of Treatment Not on file
[2025-04-20 14:36] LABS: Hematocrit 42.2 % (36.0-48.0); Hemoglobin 14.4 g/dL (12.0-16.0); Immature Granulocytes Abs Auto 0.02 10^3/uL (0.00-0.03); Immature Granulocytes Pct Auto 0.2 % (0.0-0.5); Lymphocytes Absolute Auto 5.1 10^3/uL (1.2-3.8); Mean Corpuscular HGB Conc 34.1 g/dL (29.9-35.2); Mean Corpuscular Hemoglobin 31.5 pg (26.7-34.0); Mean Corpuscular Volume 92.3 fL (81.0-99.0); Platelet Count 385 10^3/uL (150-450); Red Blood Count 4.57 10^6/uL (4.20-5.40); White Blood Count 10.7 10^3/uL (4.0-11.0)
[2025-04-20 14:50] LABS: Anion Gap 12.0; Blood Urea Nitrogen 20.0 mg/dL (7.0-18.0); Calcium 9.0 mg/dL (8.5-10.1); Carbon Dioxide 29.2 mmol/L (21.0-32.0); Chloride 105 mmol/L (98-107); Estimated GFR (African America >60 (>=60 mL/min/1.73m^2); Estimated GFR (Non-African Ame >60 (>=60 mL/min/1.73m^2); Glucose 55 mg/dL (74-106); Potassium 4.2 mmol/L (3.5-5.1); Sodium 142 mmol/L (136-145)
[2025-04-20 15:14] LABS: Iron 120.0 ug/dL (50.0-170.0); Percent Iron Saturation 42.7 %; Total Iron Binding Capacity 281.0 ug/dL (250.0-450.0)
[2025-04-20 15:27] LABS: Ferritin 29.0 ng/mL (8.0-252.0)
== END 2025-04-20 14:19 | disposition home or self-care (01) ==
LOC: LAB 14:20
PROVIDERS: PCP Family Medicine; Visit Provider Internal Medicine Hematology & Oncology
DX: D68.59 Other primary thrombophilia (principal); I82.409 Acute embolism and thrombosis of unspecified deep veins of unspecified lower extremity
CPT/HCPCS: 36415; 80048; 82728; 83540; 83550; 85025

== ENCOUNTER 2025-04-20 15:16 | Outpatient (RCR) | payer OTHER, SELFPAY ==
--- NOTE | 2025-04-20 16:21 | SWNOTE1 ---
SHREE was called by [facility] to assist pt with any potential resources. SHREE met with pt a few months ago. Pt is now living with her father in [place] due to a disagreement with her mother. Pt does not get along with her mother at this time due to her boyfriend. She was supposed to get a home from her mom, but that fell through. Pt voiced frustrations with her living situation. Her father is an alcoholic. SHREE did offer housing information, but pt was aware of wait list and voiced she is alright at this time. Her 2 younger sons are in [place] as well. She does not really speak to her oldest son. She has a good friend in [place] that lives right down the road who is a good support for her. Talking to her friend Edda is like therapy for her. Pt voiced she just felt alone for the past few months. SHREE offered encouragement and let pt know she is a strong individual and to continue to reach out to her support and her 2 younger kids. She did on;y have $9 left for gas to get back to [place]. She does have food as her food stamps did come through for April. SHREE offered to try to get a gas card for pt. Pt voiced that would be very helpful and she appreciated it. SHREE also provided pt with contact for SHREE and advised she can call at anytime. SHREE spoke with Alesia in administration and she was able to give out $10 gas card. SHREE provided to pt. SHREE updated Breanna in [facility]. Dr. Gilbert came in room as well and he is up to date on gas card and that support was provided to patient.
== END 2025-05-09 23:59 | disposition home or self-care (01) ==
LOC: HEMC 15:16
PROVIDERS: PCP Family Medicine; Visit Provider Internal Medicine Hematology & Oncology
DX: D68.59 Other primary thrombophilia (principal); I82.409 Acute embolism and thrombosis of unspecified deep veins of unspecified lower extremity; Z87.891 Personal history of nicotine dependence; Z86.718 Personal history of other venous thrombosis and embolism
CPT/HCPCS: 36415; 80048; 82728; 83540; 83550; 85025; G0463